=== PATIENT | female | born 2000 | race Caucasian/White ===

== ENCOUNTER 2022-10-31 20:59 | Outpatient (REF) | payer SELFPAY ==
[2022-11-04 12:09] LABS: Age Gdln ACOG Testing Note (.); IGP, rfx Aptima HPV ASCU Note (.)
== END 2022-10-31 21:00 | disposition home or self-care (01) ==
LOC: LAB 20:59
PROVIDERS: Visit Provider Obstetrics & Gynecology
DX: Z01.419 Encounter for gynecological examination (general) (routine) without abnormal findings (principal); Z11.51 Encounter for screening for human papillomavirus (HPV); Z12.72 Encounter for screening for malignant neoplasm of vagina
CPT/HCPCS: G0145

== ENCOUNTER 2023-01-06 09:54 | Outpatient (OUT) | payer MEDICAID, SELFPAY ==
--- NOTE | 2023-01-06 09:58 | US_ITS ---
[address] [address] Patient Name: ANTOINETTE CHAN MRN: [id number] date: 2000 Sex: F Assigned Patient Location: US Current Patient Location: US Accession/Order Number: [id number] Exam Date: 01/06/2023 10:00 Report Date: 01/06/2023 16:29 At the request of: MURIEL GARCIA Procedure: US OB cervical length EXAMINATION: US OB anatomy, US OB cervical length HISTORY: Second Trimester Z34.92 COMPARISON: Ultrasound OB transvaginal 08/11/2022 TECHNIQUE: Transabdominal sonographic examination was performed for obstetrical and evaluation. FINDINGS: Number: 1 Heart Rate: 153.4 bpm H.B. /min Amniotic Fluid Volume: Subjectively normal Placental Location: POSTERIOR with lower margin 7.9 cm from os. Cervix Length: 5 cm , closed ANATOMY: Normal Structures -cerebellum, choroid plexus, cisterna magna, lateral cerebral ventricles, orbits, midline falx, hard palate, four-chamber heart, RVOT, LVOT, stomach, kidneys, bladder, umbilical cord insertion into abdomen, three-vessel cord, cervical spine, thoracic spine, lumbar spine, sacral spine, right upper extremity, left upper extremity, right lower extremity, left lower extremity. SUBOPTIMALLY SEEN: Lower leg/foot due to position ABNORMALITIES: None BIOMETRY: BPD: 8.1 cm 32 weeks 5 days HC: 30.5 cm 34 weeks 0 days AC: 28.7 cm 32 weeks 5 days FL: 5.6 cm 29 weeks 4 days EFW:1862.2 grams; FL/AC: 19.5 FL/BPD: 68.9 HC/AC: 1.1 GESTATIONAL AGE: Age by EDC: 32 weeks 1 days FERNANDO by EDC: 03/02/2023 Age by current US: 32 weeks 2 days FERNANDO by current US: [id number] US/US OB cervical length IMPRESSION: 1. Single live intrauterine with gross detailed above. 2. Suboptimal visualization of the lower leg/foot due to position. Electronically authenticated by: PENELOPE DAVIS Date: 01/06/2023 16:29
--- NOTE | 2023-01-06 09:58 | US_ITS ---
[address] [address] Patient Name: ANTOINETTE CHAN MRN: [id number] date: 2000 Sex: F Assigned Patient Location: US Current Patient Location: US Accession/Order Number: [id number] Exam Date: 01/06/2023 10:00 Report Date: 01/06/2023 16:29 At the request of: MURIEL GARCIA Procedure: US OB anatomy EXAMINATION: US OB anatomy, US OB cervical length HISTORY: Second Trimester Z34.92 COMPARISON: Ultrasound OB transvaginal 08/11/2022 TECHNIQUE: Transabdominal sonographic examination was performed for obstetrical and evaluation. FINDINGS: Number: 1 Heart Rate: 153.4 bpm H.B. /min Amniotic Fluid Volume: Subjectively normal Placental Location: POSTERIOR with lower margin 7.9 cm from os. Cervix Length: 5 cm , closed ANATOMY: Normal Structures -cerebellum, choroid plexus, cisterna magna, lateral cerebral ventricles, orbits, midline falx, hard palate, four-chamber heart, RVOT, LVOT, stomach, kidneys, bladder, umbilical cord insertion into abdomen, three-vessel cord, cervical spine, thoracic spine, lumbar spine, sacral spine, right upper extremity, left upper extremity, right lower extremity, left lower extremity. SUBOPTIMALLY SEEN: Lower leg/foot due to position ABNORMALITIES: None BIOMETRY: BPD: 8.1 cm 32 weeks 5 days HC: 30.5 cm 34 weeks 0 days AC: 28.7 cm 32 weeks 5 days FL: 5.6 cm 29 weeks 4 days EFW:1862.2 grams; FL/AC: 19.5 FL/BPD: 68.9 HC/AC: 1.1 GESTATIONAL AGE: Age by EDC: 32 weeks 1 days FERNANDO by EDC: 03/02/2023 Age by current US: 32 weeks 2 days FERNANDO by current US: [id number] US/US OB anatomy IMPRESSION: 1. Single live intrauterine with gross detailed above. 2. Suboptimal visualization of the lower leg/foot due to position. Electronically authenticated by: PENELOPE DAVIS Date: 01/06/2023 16:29
== END 2023-01-06 09:55 | disposition home or self-care (01) ==
LOC: US 09:54
PROVIDERS: Visit Provider Obstetrics & Gynecology
DX: Z34.92 Encounter for supervision of normal pregnancy, unspecified, second trimester (principal); Z3A.32 32 weeks gestation of pregnancy
CPT/HCPCS: 76805; 76817

== ENCOUNTER 2023-01-31 20:16 | Outpatient (REF) | payer MEDICAID, SELFPAY | END 2023-01-31 20:17 | disposition home or self-care (01) | LOC: LAB 20:16 | PROVIDERS: Visit Provider Obstetrics & Gynecology | DX: Z34.93 Encounter for supervision of normal pregnancy, unspecified, third trimester (principal); Z3A.00 Weeks of gestation of pregnancy not specified | CPT/HCPCS: 87081 ==

== ENCOUNTER 2023-02-07 14:33 | Outpatient (OUT) | payer SELFPAY ==
--- NOTE | 2023-02-07 14:35 | US_ITS ---
[address] [address] Patient Name: ANTOINETTE CHAN MRN: [id number] date: 2000 Sex: F Assigned Patient Location: Current Patient Location: [facility] Accession/Order Number: [id number] Exam Date: 02/07/2023 14:36 Report Date: 02/07/2023 20:57 At the request of: MURIEL GARCIA Procedure: US OB incomplete anatomy EXAM: US OB incomplete anatomy HISTORY: SUBVISUALIZED LOWER EXTREMITIES COMPARISON: 01/06/2023 TECHNIQUE: Transabdominal FINDINGS: position: Cephalic presentation, longitudinal lie Heart rate: 164 beats minute. Normal anatomy: Lower extremities are grossly normal within the limitations of advanced gestational age Clinical age: 33 weeks 5 days Clinical FERNANDO: 03/02/2023 US/US OB incomplete anatomy IMPRESSION: Grossly normal appearance of the lower extremities Electronically authenticated by: ASHLEY ACTES Date: 02/07/2023 20:57
== END 2023-02-07 14:34 | disposition home or self-care (01) ==
LOC: US 14:33
PROVIDERS: Visit Provider Obstetrics & Gynecology
DX: Z36.2 Encounter for other antenatal screening follow-up (principal); Z3A.33 33 weeks gestation of pregnancy
CPT/HCPCS: 76815

== ENCOUNTER 2023-02-07 20:35 | Inpatient (IN) | payer MEDICAID, SELFPAY ==
[2023-02-07] VITALS (10 sets, daily range): BP systolic 101–161; BP diastolic 58–110; PULSE 68–103
[2023-02-07] MEDS: AMPICILLIN SODIUM 2,000 MG in 0.9 % SODIUM CHLORIDE 100 ML 200 MG IV (21:03)
[2023-02-07] MEDS: 0.9 % SODIUM CHLORIDE 1,000 ML 1000 ML IV (21:03)
[2023-02-07 21:15] LABS: Amphetamine Screen Urine NEGATIVE (NEGATIVE); Barbiturates Screen Urine NEGATIVE (NEGATIVE); Benzodiazepines Screen Urine NEGATIVE (NEGATIVE); Buprenorphine Screen Urine NEGATIVE (NEGATIVE); Cannabinoid Screen Urine POSITIVE (NEGATIVE); Cocaine Screen Urine NEGATIVE (NEGATIVE); Methadone Screen Urine NEGATIVE (NEGATIVE); Methamphetamines Screen Urine NEGATIVE (NEGATIVE); Opiate Screen Urine NEGATIVE (NEGATIVE); Oxycodone Screen Urine NEGATIVE (NEGATIVE); Phencyclidine Screen Urine NEGATIVE (NEGATIVE); Tricyclic Antidepressant Urine NEGATIVE (NEGATIVE)
[2023-02-07 21:31] LABS: Hematocrit 33.6 % (36.0-48.0); Hemoglobin 11.7 g/dL (12.0-16.0); Mean Corpuscular HGB Conc 34.8 g/dL (29.9-35.2); Mean Corpuscular Hemoglobin 30.1 pg (26.7-34.0); Mean Corpuscular Volume 86.4 fL (81.0-99.0); Mean Platelet Volume 12.7 fL (9.5-13.5); Platelet Count 141 10^3/uL (150-450); Red Blood Count 3.89 10^6/uL (4.20-5.40); Red Cell Distribution Width 12.8 % (11.0-15.0); White Blood Count 10.3 10^3/uL (4.0-11.0)
[2023-02-07] MEDS: FENTANYL CITRATE/PF 100 MCG/2 ML VIAL EPIDURAL (21:55)
[2023-02-07] MEDS: ROPIVACAINE HCL/PF 400 MG/200 ML PREMIX 6 MG EPIDURAL (22:02)
--- NOTE | 2023-02-07 22:57 | PM.OBPRCVD ---
Procedure Intrapartal events: None Induction method: none Delivery augmentation: rupture of membranes Delivery monitor: external FHT and external uterine Route of delivery: Episiotomy Description: none Laceration description: periurethral - 1st degree Delivery repair: Vicryl Estimated blood loss (mL): 150 Anesthesia type: Epidural Disposition: floor Delivery date: 02/07/23 Gender: male presentation: vertex Placental delivery description: Spontaneous cord description: 3 Vessels
[2023-02-08 00:13] VITALS: BP 105/74; PULSE 64
[2023-02-08 00:16] VITALS: BP 104/65; PULSE 69
[2023-02-08 00:31] VITALS: BP 109/68; PULSE 82
[2023-02-08 00:47] VITALS: BP 110/60; PULSE 66
[2023-02-08] MEDS: BENZOCAINE/MENTHOL 85 GRAM SPRAY BOTTLE 1 APPLIC TOPICAL (01:00)
[2023-02-08] MEDS: GLYCERIN/WITCH HAZEL PADS 1 PAD TOPICAL (01:00)
[2023-02-08] MEDS: IBUPROFEN 600 MG TABLET PO ×3 (03:13→18:22)
[2023-02-08 05:55] LABS: Basophils Percent Auto 0.1 % (0.2-2.0); Hematocrit 32.4 % (36.0-48.0); Hemoglobin 10.8 g/dL (12.0-16.0); Immature Granulocytes Abs Auto 0.06 10^3/uL (0.00-0.03); Immature Granulocytes Pct Auto 0.4 % (0.0-0.5); Lymphocytes Absolute Auto 1.2 10^3/uL (1.2-3.8); Lymphocytes Percent Auto 8.4 % (20.5-60.0); Mean Corpuscular HGB Conc 33.3 g/dL (29.9-35.2); Mean Corpuscular Hemoglobin 29.4 pg (26.7-34.0); Mean Corpuscular Volume 88.3 fL (81.0-99.0); Mean Platelet Volume 12.5 fL (9.5-13.5); Monocytes Absolute Auto 1.1 10^3/uL (0.3-0.8); Monocytes Percent Auto 7.4 % (1.7-12.0); Neutrophils Absolute Auto 12.2 10^3/uL (1.4-6.5); Neutrophils Percent Auto 83.7 % (43.0-75.0); Platelet Count 116 10^3/uL (150-450); Red Blood Count 3.67 10^6/uL (4.20-5.40); Red Cell Distribution Width 12.7 % (11.0-15.0); White Blood Count 14.5 10^3/uL (4.0-11.0)
[2023-02-08 07:42] VITALS: BP 111/76; PULSE 77; RESP 16; TEMP 36.2
--- NOTE | 2023-02-08 07:42 | W.PC.ACHO ---
Registration Status: ADM IN Primary Language: Preferred Language: Arabic Active Medications Generic Name Dose Route Start Last Admin Trade Name Dawood PRN Reason Stop Dose Admin Acetaminophen 650 mg 02/07/23 22:59 Acetaminophen 325 Mg Tablet PO Q6H PRN Mild Pain Al Hydroxide/Mg Hydroxide 2,400 mg 02/07/23 22:59 Magnesium Hydroxide 2,400 Mg/10 Ml Oral.Susp PO Q6H PRN Dyspepsia Benzocaine/Menthol 1 applic 02/07/23 22:59 02/08/23 01:00 Benzocaine/Menthol 85 Gram [place] Bottle TOPICAL 1 applic Q2H PRN Administration Pain Carboprost Tromethamine 250 mcg 02/07/23 20:50 Carboprost Tromethamine 250 Mcg/Ml 1 Ml Vial IM 02/09/23 20:50 Q15M PRN Bleeding Diphenhydramine HCl 25 mg 02/07/23 20:50 Diphenhydramine Hcl 50 Mg/Ml (1ml) Vial IV 02/08/23 20:53 Q6H PRN Itching Diphtheria/Pertussis/Tetanus Vacc 0.5 ml 02/09/23 09:00 Adacel Diph,Pertuss(Acell),Tet Vac/Pf 0.5 Ml Adult Syringe IM 02/09/23 09:01 .ONCE ONE Docusate Sodium 100 mg 02/08/23 09:00 Docusate Sodium 100 Mg Capsule PO BID LISA Ephedrine Sulfate 5 mg 02/07/23 20:50 Ephedrine Sulfate 50 Mg/Ml Vial IV 02/08/23 20:53 Q5M PRN Blood Pressure - Low Fentanyl Citrate 100 mcg 02/07/23 20:50 02/07/23 21:55 Fentanyl Citrate/Pf 100 Mcg/2 Ml Vial EPIDURAL 100 mcg ONCE PRN Administration epidural Fentanyl Citrate 100 mcg 02/07/23 20:50 Fentanyl Citrate/Pf 100 Mcg/2 Ml Vial EPIDURAL ONCE PRN epidural Sodium Chloride 1,000 mls @ 125 mls/hr 02/07/23 21:00 Sodium Chloride 0.9% 1,000 Ml IV .Q8H LISA Ampicillin 1,000 mg/ Sodium 50 mls @ 100 mls/hr 02/08/23 01:00 Chloride IV Q4H LISA Ropivacaine/Sodium Chloride 400 mg in 200 mls @ 6 mls/hr 02/07/23 21:00 02/07/23 22:02 Naropin 0.2% 400 Mg/200 Ml Bag EPIDURAL 6 mls/hr Q24H LISA Administration Ibuprofen 600 mg 02/07/23 22:59 02/08/23 03:13 Ibuprofen 600 Mg Tablet PO 600 mg Q6H PRN Administration Moderate Pain Lidocaine 5 ml 02/07/23 20:50 Lidocaine Hcl 2% Pf 100 Mg/5 Ml Vial INJ 02/08/23 20:53 Q1H PRN Pain Measles/Mumps/Rubella Vaccine Live 0.5 ml 02/09/23 09:00 Measles,Mumps,Rubella Vacc/Pf 0.5 Ml Vial SQ 02/09/23 09:01 .ONCE ONE Methylergonovine Maleate 0.2 mg 02/07/23 20:50 Methylergonovine Maleate 0.2 Mg/Ml Ampule IM 02/09/23 20:50 ONCE PRN Uterine Contractility/Contract Methylergonovine Maleate 0.2 mg 02/07/23 20:50 Methylergonovine Maleate 0.2 Mg Tablet PO 02/09/23 20:50 Q4H PRN Uterine Contractility/Contract Misoprostol 600 mcg 02/07/23 20:50 Misoprostol 100 Mcg Tablet PO 02/09/23 20:50 ONCE PRN Uterine Bleeding Misoprostol 800 mcg 02/07/23 20:50 Misoprostol 100 Mcg Tablet SL 02/09/23 20:50 ONCE PRN Uterine Bleeding Misoprostol 1,000 mcg 02/07/23 20:50 Misoprostol 100 Mcg Tablet [place] 02/09/23 20:50 ONCE PRN Uterine Bleeding Naloxone HCl 0.4 mg 02/07/23 20:50 Naloxone Hcl 0.4 Mg/Ml Vial IV 02/08/23 20:53 ONCE PRN Opiate Reversal Ondansetron HCl 4 mg 02/07/23 20:50 Ondansetron Pf 4 Mg/2 Ml Vial IV Q6H PRN Nausea And Vomiting Ondansetron HCl 4 mg 02/07/23 20:50 Ondansetron 4 Mg Rapdis Tablet SL Q6H PRN Nausea And Vomiting Oxytocin 10 unit 02/07/23 20:50 Oxytocin 10 Unit/Ml Vial IM 02/09/23 20:50 ONCE PRN Bleeding Senna 17.2 mg 02/07/23 20:00 Sennosides 8.6 Mg Tablet PO QHS PRN Constipation Simethicone 80 mg 02/07/23 22:59 Simethicone 80 Mg Tab.Chew PO QID PRN Abdominal Distention Temazepam 15 mg 02/07/23 22:59 Temazepam 15 Mg Capsule PO QHS PRN Sleep Witch [place]ora/Glycerin 1 pad 02/07/23 22:59 02/08/23 01:00 Glycerin/Witch [place] Pads TOPICAL 1 pad Q2H PRN Administration Pain Diet Category Date Time Status Regular Consistency Diet Diet 02/07/23 22:59 Active IV Insertion/Site Date of IV Line Insertion [ 02/07/23 Short PIV (<1.75 in) 18g left Hand] IV Insertion Time [Short PIV ( 20:58 <1.75 in) 18g left Hand] Neurology Patient orientation (short person,place,time,situation list) Respiratory Oxygen Delivery Method Room Air Cardiology Heart Sounds Strong,Regular Bowels Date of Last Bowel Movement 02/08/23 Date of Last Bowel Movement 02/08/23 Renal Bladder Pattern Continent
--- NOTE | 2023-02-08 08:11 | PM.OBPN ---
OB - PN: Subj Subjective Patient comments: no complaints and pain well controlled status: doing well Exam Constitutional Vital Signs, click to edit/add: Last Vital Signs Pulse 77 02/08/23 07:42 BP 111/76 02/08/23 07:42 O2 Del Method Room Air 02/08/23 00:15 Documenting provider has reviewed patient's vital signs: yes Common normals: no apparent distress Respiratory Common normals: normal respiratory effort and clear to auscultation bilaterally Cardio Common normals: regular rate and regular rhythm GI Common normals: Normal to inspection, nondistended, normoactive bowel sounds present Extremity Common normals: no clubbing, cyanosis or edema and no calf tenderness Results Labs Labs: Short CBC 02/07/23 02/08/23 Range/Units 21:00 05:41 WBC 10.3 14.5 H (4.0-11.0) 10^3/uL Hgb 11.7 L 10.8 L (12.0-16.0) g/dL Hct 33.6 L 32.4 L (36.0-48.0) % Plt Count 141 L 116 L (150-450) 10^3/uL OB - PN: A/P Plan - Vaginal Delivery day: 1 Plan: routine care Time Spent with Patient Time: Total time spent is greater than 50% in coordination of care (as documented) at patient's floor/unit and/or counseling patient: Total time spent with greater than 50% in coordination of care (as documented) at patient's floor/unit and/or counseling patient: less than 15 minutes
[2023-02-08] MEDS: DOCUSATE SODIUM 100 MG CAPSULE PO ×2 (08:57→20:26)
--- NOTE | 2023-02-08 12:22 | CM.NOTE ---
Talked with pt about self-pay, pt states her paperwork was turned in late for Medicaid. Talked with Sophia in billing, pt is not active with Medicaid at this time and Tamra will come up and talk with pt regarding Hcap form. Pt has resubmitted paperwork for Medicaid but everything is still pending.
--- NOTE | 2023-02-08 14:16 | PC.NURSE ---
LC into room, Jessica holding baby. States its going pretty good states baby is sleepy and gaggy at intervals. Aware that 36 weeks GA may present difficulties with . Discussed ways to recognize early feeding cues, keeping baby engaged with feeding and signs that baby may be tired from effort of feeding. Discussed plans for easy milk by hand expression and collection. Giving baby expressed colostrum via cup, spoon or finger/syringe to increase calories without burning calories working for food. Verbalized understanding. Given 2 handouts for LPI information for pt to review. No further questions at this time.
[2023-02-08] MEDS: ACETAMINOPHEN 325 MG TABLET 650 MG PO ×2 (14:49→20:27)
[2023-02-08 16:05] VITALS: BP 114/69; PULSE 87; RESP 16; TEMP 36.3
--- NOTE | 2023-02-08 19:36 | W.PC.ACHO ---
Registration Status: ADM IN Primary Language: Preferred Language: Nepali Active Medications Generic Name Dose Route Start Last Admin Trade Name Alfredoq PRN Reason Stop Dose Admin Acetaminophen 650 mg 02/07/23 22:59 02/08/23 14:49 Acetaminophen 325 Mg Tablet PO 650 mg Q6H PRN Administration Mild Pain Al Hydroxide/Mg Hydroxide 2,400 mg 02/07/23 22:59 Magnesium Hydroxide 2,400 Mg/10 Ml Oral.Susp PO Q6H PRN Dyspepsia Benzocaine/Menthol 1 applic 02/07/23 22:59 02/08/23 01:00 Benzocaine/Menthol 85 Gram [place] Bottle TOPICAL 1 applic Q2H PRN Administration Pain Carboprost Tromethamine 250 mcg 02/07/23 20:50 Carboprost Tromethamine 250 Mcg/Ml 1 Ml Vial IM 02/08/23 23:59 Q15M PRN Bleeding Celecoxib 20 mg 02/09/23 09:00 Citalopram Hydrobromide 20 Mg Tablet PO QD LISA Diphtheria/Pertussis/Tetanus Vacc 0.5 ml 02/09/23 09:00 Adacel Diph,Pertuss(Acell),Tet Vac/Pf 0.5 Ml Adult Syringe IM 02/09/23 09:01 .ONCE ONE Docusate Sodium 100 mg 02/08/23 09:00 02/08/23 08:57 Docusate Sodium 100 Mg Capsule PO 100 mg BID LISA Administration Sodium Chloride 1,000 mls @ 125 mls/hr 02/07/23 21:00 Sodium Chloride 0.9% 1,000 Ml IV .Q8H LISA Ibuprofen 600 mg 02/07/23 22:59 02/08/23 18:22 Ibuprofen 600 Mg Tablet PO 600 mg Q6H PRN Administration Moderate Pain Measles/Mumps/Rubella Vaccine Live 0.5 ml 02/09/23 09:00 Measles,Mumps,Rubella Vacc/Pf 0.5 Ml Vial SQ 02/09/23 09:01 .ONCE ONE Methylergonovine Maleate 0.2 mg 02/07/23 20:50 Methylergonovine Maleate 0.2 Mg/Ml Ampule IM 02/08/23 23:59 ONCE PRN Uterine Contractility/Contract Methylergonovine Maleate 0.2 mg 02/07/23 20:50 Methylergonovine Maleate 0.2 Mg Tablet PO 02/08/23 23:59 Q4H PRN Uterine Contractility/Contract Misoprostol 600 mcg 02/07/23 20:50 Misoprostol 100 Mcg Tablet PO 02/08/23 23:59 ONCE PRN Uterine Bleeding Misoprostol 800 mcg 02/07/23 20:50 Misoprostol 100 Mcg Tablet SL 02/08/23 23:59 ONCE PRN Uterine Bleeding Misoprostol 1,000 mcg 02/07/23 20:50 Misoprostol 100 Mcg Tablet CA 02/08/23 23:59 ONCE PRN Uterine Bleeding Ondansetron HCl 4 mg 02/07/23 20:50 Ondansetron Pf 4 Mg/2 Ml Vial IV Q6H PRN Nausea And Vomiting Ondansetron HCl 4 mg 02/07/23 20:50 Ondansetron 4 Mg Rapdis Tablet SL Q6H PRN Nausea And Vomiting Senna 17.2 mg 02/07/23 20:00 Sennosides 8.6 Mg Tablet PO QHS PRN Constipation Simethicone 80 mg 02/07/23 22:59 Simethicone 80 Mg Tab.Chew PO QID PRN Abdominal Distention Temazepam 15 mg 02/07/23 22:59 Temazepam 15 Mg Capsule PO QHS PRN Sleep Witch [place]/Glycerin 1 pad 02/07/23 22:59 02/08/23 01:00 Glycerin/Witch [place] Pads TOPICAL 1 pad Q2H PRN Administration Pain Diet Category Date Time Status Regular Consistency Diet Diet 02/07/23 22:59 Active Consults Category Date Time Status 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
[2023-02-09 00:15] VITALS: BP 121/78; PULSE 73; RESP 16; TEMP 36.9
[2023-02-09 00:16] VITALS: BP 121/78; PULSE 73
[2023-02-09] MEDS: IBUPROFEN 600 MG TABLET PO ×2 (04:59→12:50)
[2023-02-09 08:35] VITALS: BP 121/72; PULSE 83; RESP 16; TEMP 36.2
--- NOTE | 2023-02-09 08:38 | PM.OBPN ---
OB - PN: Subj Subjective Patient comments: no complaints and pain well controlled [place] status: doing well Exam Constitutional Vital Signs, click to edit/add: Last Vital Signs Temp 98.4 F 02/09/23 00:15 Pulse 83 02/09/23 08:35 Resp 16 02/09/23 00:15 BP 121/72 02/09/23 08:35 O2 Del Method Room Air 02/09/23 00:15 Documenting provider has reviewed patient's vital signs: yes Common normals: no apparent distress Respiratory Common normals: normal respiratory effort and clear to auscultation bilaterally Cardio Common normals: regular rate and regular rhythm GI Common normals: Normal to inspection, nondistended, normoactive bowel sounds present Extremity Common normals: no calf tenderness OB - PN: A/P Plan - Vaginal Delivery day: 2 Plan: routine care, discharge home and follow up 6 weeks Time Spent with Patient Time: Total time spent is greater than 50% in coordination of care (as documented) at patient's floor/unit and/or counseling patient: Total time spent with greater than 50% in coordination of care (as documented) at patient's floor/unit and/or counseling patient: less than 15 minutes
[2023-02-09] MEDS: DOCUSATE SODIUM 100 MG CAPSULE PO (08:39)
[2023-02-09] MEDS: CITALOPRAM HYDROBROMIDE 20 MG TABLET PO (08:39)
--- NOTE | 2023-02-09 12:17 | PC.NURSE ---
Pt states feeding is going well, no concerns with latching or ability to transfer milk. Mom has baby at breast now and is noted to be swaddled with both arms crossed over chest. Reviewed deep latch and better positioning. Pt weaned 2 yo 10 weeks ago. States feels full and leaking with latch.
--- NOTE | 2023-02-09 13:01 | W.PC.ACHO ---
Registration Status: ADM IN Primary Language: Preferred Language: Yoruba Report given. Care relinguished Active Medications Generic Name Dose Route Start Last Admin Trade Name Freq PRN Reason Stop Dose Admin Acetaminophen 650 mg 02/07/23 22:59 02/08/23 20:27 Acetaminophen 325 Mg Tablet PO 650 mg Q6H PRN Administration Mild Pain Al Hydroxide/Mg Hydroxide 2,400 mg 02/07/23 22:59 Magnesium Hydroxide 2,400 Mg/10 Ml Oral.Susp PO Q6H PRN Dyspepsia Benzocaine/Menthol 1 applic 02/07/23 22:59 02/08/23 01:00 Benzocaine/Menthol 85 Gram [place] Bottle TOPICAL 1 applic Q2H PRN Administration Pain Celecoxib 20 mg 02/09/23 09:00 Citalopram Hydrobromide 20 Mg Tablet PO QD LISA Diphtheria/Pertussis/Tetanus Vacc 0.5 ml 02/09/23 09:00 Adacel Diph,Pertuss(Acell),Tet Vac/Pf 0.5 Ml Adult Syringe IM 02/09/23 09:01 .ONCE ONE Docusate Sodium 100 mg 02/08/23 09:00 02/08/23 20:26 Docusate Sodium 100 Mg Capsule PO 100 mg BID LISA Administration Sodium Chloride 1,000 mls @ 125 mls/hr 02/07/23 21:00 Sodium Chloride 0.9% 1,000 Ml IV .Q8H LISA Ibuprofen 600 mg 02/07/23 22:59 02/09/23 04:59 Ibuprofen 600 Mg Tablet PO 600 mg Q6H PRN Administration Moderate Pain Measles/Mumps/Rubella Vaccine Live 0.5 ml 02/09/23 09:00 Measles,Mumps,Rubella Vacc/Pf 0.5 Ml Vial SQ 02/09/23 09:01 .ONCE ONE Ondansetron HCl 4 mg 02/07/23 20:50 Ondansetron Pf 4 Mg/2 Ml Vial IV Q6H PRN Nausea And Vomiting Ondansetron HCl 4 mg 02/07/23 20:50 Ondansetron 4 Mg Rapdis Tablet SL Q6H PRN Nausea And Vomiting Senna 17.2 mg 02/07/23 20:00 Sennosides 8.6 Mg Tablet PO QHS PRN Constipation Simethicone 80 mg 02/07/23 22:59 Simethicone 80 Mg Tab.Chew PO QID PRN Abdominal Distention Temazepam 15 mg 02/07/23 22:59 Temazepam 15 Mg Capsule PO QHS PRN Sleep Witch [place]/Glycerin 1 pad 02/07/23 22:59 02/08/23 01:00 Glycerin/Witch [place] Pads TOPICAL 1 pad Q2H PRN Administration Pain Respiratory Oxygen Delivery Method Room Air Oxygen Delivery Method Room Air Oxygen Delivery Method Room Air Renal Bladder Pattern Continent
--- NOTE | 2023-02-09 13:01 | W.PC.ACHO ---
Registration Status: ADM IN Primary Language: Preferred Language: Estonian Report received from Yasmin BENNETT at 1130. Active Medications Generic Name Dose Route Start Last Admin Trade Name Freq PRN Reason Stop Dose Admin Acetaminophen 650 mg 02/07/23 22:59 02/08/23 20:27 Acetaminophen 325 Mg Tablet PO 650 mg Q6H PRN Administration Mild Pain Al Hydroxide/Mg Hydroxide 2,400 mg 02/07/23 22:59 Magnesium Hydroxide 2,400 Mg/10 Ml Oral.Susp PO Q6H PRN Dyspepsia Benzocaine/Menthol 1 applic 02/07/23 22:59 02/08/23 01:00 Benzocaine/Menthol 85 Gram [place] Bottle TOPICAL 1 applic Q2H PRN Administration Pain Celecoxib 20 mg 02/09/23 09:00 02/09/23 08:39 Citalopram Hydrobromide 20 Mg Tablet PO 20 mg QD LISA Administration Docusate Sodium 100 mg 02/08/23 09:00 02/09/23 08:39 Docusate Sodium 100 Mg Capsule PO 100 mg BID LISA Administration Sodium Chloride 1,000 mls @ 125 mls/hr 02/07/23 21:00 Sodium Chloride 0.9% 1,000 Ml IV .Q8H LISA Ibuprofen 600 mg 02/07/23 22:59 02/09/23 12:50 Ibuprofen 600 Mg Tablet PO 600 mg Q6H PRN Administration Moderate Pain Ondansetron HCl 4 mg 02/07/23 20:50 Ondansetron Pf 4 Mg/2 Ml Vial IV Q6H PRN Nausea And Vomiting Ondansetron HCl 4 mg 02/07/23 20:50 Ondansetron 4 Mg Rapdis Tablet SL Q6H PRN Nausea And Vomiting Senna 17.2 mg 02/07/23 20:00 Sennosides 8.6 Mg Tablet PO QHS PRN Constipation Simethicone 80 mg 02/07/23 22:59 Simethicone 80 Mg Tab.Chew PO QID PRN Abdominal Distention Temazepam 15 mg 02/07/23 22:59 Temazepam 15 Mg Capsule PO QHS PRN Sleep Witch [place]/Glycerin 1 pad 02/07/23 22:59 02/08/23 01:00 Glycerin/Witch [place] Pads TOPICAL 1 pad Q2H PRN Administration Pain Respiratory Oxygen Delivery Method Room Air Oxygen Delivery Method Room Air Oxygen Delivery Method Room Air Oxygen Delivery Method Room Air Renal Bladder Pattern Continent
[2023-02-09 15:45] VITALS: BP 106/71; PULSE 81
[2023-02-11 18:08] LABS: Cannabinoid Positive (.); Carboxy THC Conf, MS, UR >750 ng/mL (Cutoff=10)
--- NOTE | 2023-02-20 15:14 | CM.NOTE ---
Cord results negative and were called to CPS.
== END 2023-02-09 18:00 | disposition home or self-care (01) | DRG 807 ==
PROVIDERS: Admitting Provider Obstetrics & Gynecology; Visit Provider Obstetrics & Gynecology
DX: O60.14X0 Preterm labor third trimester with preterm delivery third trimester, not applicable or unspecified (principal); Z37.0 Single live birth; O71.82 Other specified trauma to perineum and vulva; O99.52 Diseases of the respiratory system complicating childbirth; J45.909 Unspecified asthma, uncomplicated; Z3A.36 36 weeks gestation of pregnancy
CPT/HCPCS: 36415; 59050; 59410; 76815; 80307; 80349; 85025; 85027; 86850; 86900; 86901; 96374; 96375

== ENCOUNTER 2023-02-13 08:16 | Outpatient (OUT) | payer OTHER, SELFPAY ==
[2023-02-13 18:58] VITALS: BP 124/61; PULSE 87; RESP 16; TEMP 36.4; O2SAT 97
== END 2023-02-13 16:00 | disposition home or self-care (01) ==
PROVIDERS: Visit Provider Obstetrics & Gynecology
DX: Z39.2 Encounter for routine postpartum follow-up (principal)

== ENCOUNTER 2023-07-18 11:49 | Outpatient (OUT) | payer MEDICAID, SELFPAY ==
[2023-07-18 14:06] LABS: HCG Qualitative NEGATIVE (NEGATIVE)
== END 2023-07-18 11:50 | disposition home or self-care (01) ==
LOC: LAB 11:51
PROVIDERS: PCP Family Medicine; Visit Provider Family Medicine
DX: N93.8 Other specified abnormal uterine and vaginal bleeding (principal)
CPT/HCPCS: 36415; 84703

== ENCOUNTER 2024-07-12 08:55 | Emergency (ER) | payer SELFPAY ==
[2024-07-12 08:59] VITALS: BP 113/86; PULSE 102; TEMP 36.8; O2SAT 94; BMI 26.5
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
[2024-07-12 09:33] LABS: HCG Qualitative Urine* NEGATIVE (NEGATIVE); Internal Control Within Normal Limits
[2024-07-12 09:35] LABS: Bilirubin Urine MODERATE (NEGATIVE); Blood Urine NEGATIVE (NEGATIVE); Clarity Urine SL CLOUDY (CLEAR); Color Urine YELLOW (YELLOW); Glucose Urine UA NEGATIVE (NEGATIVE); Ketones Urine 15 mg/dL (NEGATIVE); Leukocyte Esterase Urine NEGATIVE (NEGATIVE); Nitrite Urine NEGATIVE (NEGATIVE); Protein Urine TRACE mg/dL (NEG/TRACE); Specific Gravity Urine >=1.030 (1.005-1.025); Urobilinogen Urine 0.2 EU/dL (0.2-1.0)
[2024-07-12 09:40] LABS: Basophils Percent Auto 0.2 % (0.2-2.0); Eosinophils Percent Auto 0.1 % (0.9-7.0); Hematocrit 42.4 % (36.0-48.0); Hemoglobin 14.5 g/dL (12.0-16.0); Immature Granulocytes Abs Auto 0.02 10^3/uL (0.00-0.03); Immature Granulocytes Pct Auto 0.2 % (0.0-0.5); Lymphocytes Absolute Auto 1.4 10^3/uL (1.2-3.8); Lymphocytes Percent Auto 13.5 % (20.5-60.0); Mean Corpuscular HGB Conc 34.2 g/dL (29.9-35.2); Mean Corpuscular Hemoglobin 29.4 pg (26.7-34.0); Mean Corpuscular Volume 85.8 fL (81.0-99.0); Mean Platelet Volume 11.8 fL (9.5-13.5); Monocytes Absolute Auto 0.6 10^3/uL (0.3-0.8); Monocytes Percent Auto 6.2 % (1.7-12.0); Neutrophils Percent Auto 79.8 % (43.0-75.0); Platelet Count 212 10^3/uL (150-450); Red Blood Count 4.94 10^6/uL (4.20-5.40); Red Cell Distribution Width 12.7 % (11.0-15.0); White Blood Count 10.1 10^3/uL (4.0-11.0)
[2024-07-12 09:41] LABS: Bacteria Urine MODERATE #/HPF (NONE SEEN); RBC Urine 0-2 #/HPF (0-2)
[2024-07-12 09:42] LABS: Cast Seen? NONE SEEN #/LPF (NONE SEEN); Crystals Seen? None Seen #/HPF (None Seen); Mucus Urine SMALL (NONE SEEN); Squamous Epithelial Cell Urine MANY #/LPF (NONE/RARE); Urine Culture Indicated YES-FRMC
[2024-07-12] MEDS: 0.9 % SODIUM CHLORIDE 1,000 ML 1000 ML IV (10:00)
[2024-07-12] MEDS: FAMOTIDINE/PF 20 MG/2 ML VIAL IV (10:28)
[2024-07-12] MEDS: PROCHLORPERAZINE 10 MG/2 ML VIAL IV (10:28)
[2024-07-12] MEDS: lidocaine HCL 15 ML, MAG HYDROX/ALUMINUM HYD/SIMETH 30 ML, HYOSCYAMINE SULFATE 0.25 MG PO (10:28)
[2024-07-12 10:46] LABS: Alanine Aminotransferase 20 U/L (14-59); Albumin Globulin Ratio 1.4; Albumin Level 4.6 g/dL (3.4-5.0); Alkaline Phosphatase 71 U/L (46-116); Anion Gap 17.2; Aspartate Amino Transferase 14 U/L (15-37); BUN Creatinine Ratio 11.7; Bilirubin Total 0.7 mg/dL (0.2-1.0); Calcium 9.4 mg/dL (8.5-10.1); Carbon Dioxide 24.4 mmol/L (21.0-32.0); Chloride 105 mmol/L (98-107); Creatine Kinase 93 U/L (26-192); Estimated GFR (African America >60 (>=60 mL/min/1.73m^2); Estimated GFR (Non-African Ame >60 (>=60 mL/min/1.73m^2); Globulin 3.3 g/dL; Glucose 87 mg/dL (74-106); Potassium 3.6 mmol/L (3.5-5.1); Sodium 143 mmol/L (136-145); Total Protein 7.9 g/dL (6.4-8.2)
[2024-07-12 11:28] VITALS: BP 114/74; PULSE 70; O2SAT 98
[2024-07-12 12:16] VITALS: BP 123/74; PULSE 59; O2SAT 97
== END 2024-07-12 12:26 | disposition home or self-care (01) ==
PROVIDERS: Emergency Provider Emergency Medicine; PCP Family Medicine
DX: K29.70 Gastritis, unspecified, without bleeding (principal); R19.7 Diarrhea, unspecified; F41.8 Other specified anxiety disorders; F50.20 Bulimia nervosa, unspecified; Z68.26 Body mass index [BMI] 26.0-26.9, adult
CPT/HCPCS: 36415; 80053; 81001; 82550; 83690; 83735; 84703; 85025; 87086; 96361; 96374; 96375; 99284; J0780; J3490

== ENCOUNTER 2024-07-13 05:33 | Emergency (ER) | payer SELFPAY ==
[2024-07-13 05:38] VITALS: BP 122/77; PULSE 90; TEMP 36.6; O2SAT 97; BMI 26.4
--- NOTE | 2024-07-13 05:53 | ED.GENADUL1 ---
HPI HPI - General Adult General Chief complaint: Nausea/Vomiting/Diarrhea Stated complaint: VOMITTING Time Seen by Provider: 07/13/24 05:40 Source: patient Mode of arrival: walk-in Limitations: no limitations History of Present Illness HPI narrative: 23-year-old female presents to the emergency department for abdominal pain, vomiting and a small amount of diarrhea. She states she has been having these issues for about 4 days and has had no hematemesis or blood in her stool. She had been here yesterday and had blood work performed. At that time she discussed bulimia symptoms with the emergency department physician. He had spoken to the patient's PCP who was already aware of this problem and was on an antidepressant. Yesterday she was referred to [facility]. No fever or trauma. The patient had been making herself vomit so that she did not gain weight for about 3 months but stopped that about 2 weeks ago. The symptoms started 4 days ago. Related Data Home Medications ?Medication ?Instructions ?Recorded ?Confirmed citalopram 20 mg tablet 40 mg PO DAILY 02/08/23 07/12/24 promethazine 12.5 mg tablet 12.5 mg PO Q12H PRN nausea and 02/08/23 07/12/24 vomiting cyproheptadine 4 mg tablet 2 mg PO Q12H 07/12/24 07/12/24 Previous Rx's ?Medication ?Instructions ?Recorded ondansetron 4 mg disintegrating 4 mg PO Q4H PRN nausea and 07/12/24 tablet vomiting 3 days #6 tabs prochlorperazine maleate 10 mg 10 mg PO Q12H PRN nausea and 07/12/24 tablet (Compazine) vomiting, headache 7 days #7 tabs Allergies Allergy/AdvReac Type Severity Reaction Status Date / Time No Known Drug Allergies Allergy Verified 07/13/24 05:38 Opioid HPI Opioid Management Most Recent Opioid Data: Last Pain Scale 8 07/12/24 10:01 07/12/24 Urine Cannabinoids Positive (.) A 02/07/23 21:18 02/07/23 Ur Phencyclidine Scrn Negative (NEGATIVE) 02/07/23 20:50 02/07/23 Review of Systems ROS Narrative A ten point review of systems is negative except as noted above. [facility] Medical History (Updated 04/05/25 @ 06:57 by Mario Solorio MD) Suicide attempt ?T14.91XA - Suicide attempt, initial encounter (ICD-10) Asthma ?J45.909 - Unspecified asthma, uncomplicated (ICD-10) Social History (Updated 02/08/23 @ 04:22 by Jourdan Shahid) Non-prescribed substance use: cannabis (any form) Little interest or pleasure in doing things: not at all Feeling down, depressed, or hopeless: not at all Exam Narrative Exam Narrative: Nurses note and vital signs reviewed and patient is not hypoxic. General: The patient appears in no apparent distress. Skin: Warm, dry, no pallor noted. There is no rash noted. Head: Normocephalic, atraumatic Eye: Normal conjunctiva, no drainage Ears, Nose, Mouth, and Throat: oral mucosa is minimally dry. Nares patent. Cardiovascular: Regular Rate and Rhythm Respiratory: Patient is in no distress, no accessory muscle use, lungs are clear to auscultation, no wheezing, rales or rhonchi Back: non-tender GI: Soft and nontender nondistended Musculoskeletal: The patient has no evidence of calf tenderness, no pitting edema, symmetrical pulses noted bilaterally Neurological: A&O, normal speech Psychiatric: Cooperative Constitutional Vital Signs, click to edit/add: Last Vital Signs Temp 98 F 07/13/24 05:38 Pulse 90 07/13/24 05:38 Resp 18 07/13/24 05:38 BP 122/77 07/13/24 05:38 Pulse Ox 97 07/13/24 05:38 O2 Del Method Room Air 07/13/24 05:38 Course Vital Signs Vital signs: Vital Signs Temperature 98 F 07/13/24 05:38 Pulse Rate 90 07/13/24 05:38 Respiratory Rate 18 07/13/24 05:38 Blood Pressure 122/77 07/13/24 05:38 Pulse Oximetry 97 07/13/24 05:38 Oxygen Delivery Method Room Air 07/13/24 05:38 Temperature 98 F 07/13/24 05:38 Pulse Rate 90 07/13/24 05:38 Respiratory Rate 18 07/13/24 05:38 Blood Pressure 122/77 07/13/24 05:38 Pulse Oximetry 97 07/13/24 05:38 Oxygen Delivery Method Room Air 07/13/24 05:38 Medical Decision Making MDM Narrative Medical decision making narrative: Tests are ordered and the patient is signed out to Dr. Bowen at change of shift. CT scan is pending Lab Data Lab results reviewed: Yes I reviewed the patient's lab results Labs: Lab Results 07/13/24 Range/Units 05:45 WBC 12.7 H (4.0-11.0) 10^3/uL RBC 4.87 (4.20-5.40) 10^6/uL Hgb 14.5 (12.0-16.0) g/dL Hct 42.4 (36.0-48.0) % MCV 87.1 (81.0-99.0) fL MCH 29.8 (26.7-34.0) pg MCHC 34.2 (29.9-35.2) g/dL RDW 12.5 (11.0-15.0) % Plt Count 214 (150-450) 10^3/uL MPV 12.1 (9.5-13.5) fL Neut % (Auto) 85.5 H (43.0-75.0) % Lymph % (Auto) 9.8 L (20.5-60.0) % [place] % (Auto) 4.3 (1.7-12.0) % Eos % (Auto) 0.0 L (0.9-7.0) % Baso % (Auto) 0.2 (0.2-2.0) % Neut # (Auto) 10.9 H (1.4-6.5) 10^3/uL Lymph # (Auto) 1.2 (1.2-3.8) 10^3/uL [place] # (Auto) 0.6 (0.3-0.8) 10^3/uL Eos # (Auto) 0.0 (0.0-0.7) 10^3/uL Baso # (Auto) 0.0 (0.0-0.1) 10^3/uL Abs Immat Gran (auto) 0.02 (0.00-0.03) 10^3/uL Imm/Tot Granulo (auto) 0.2 (0.0-0.5) % Sodium 145 (136-145) mmol/L Potassium 3.6 (3.5-5.1) mmol/L Chloride 105 (98-107) mmol/L Carbon Dioxide 20.3 L (21.0-32.0) mmol/L Anion Gap 23.3 BUN 14.0 (7.0-18.0) mg/dL Creatinine 0.93 (0.55-1.02) mg/dL Est GFR ( Amer) >60 (>=60 mL/min/1.73m^2) Est GFR (Non-Af Amer) >60 (>=60 mL/min/1.73m^2) BUN/Creatinine Ratio 15.1 Glucose 89 (74-106) mg/dL Calcium 9.3 (8.5-10.1) mg/dL Total Bilirubin 1.1 H (0.2-1.0) mg/dL Direct Bilirubin 0.2 (0.0-0.2) mg/dL AST 15 (15-37) U/L ALT 19 (14-59) U/L Alkaline Phosphatase 70 (46-116) U/L Total Protein 7.7 (6.4-8.2) g/dL Albumin 4.7 (3.4-5.0) g/dL Globulin 3.0 g/dL Albumin/Globulin Ratio 1.6 Amylase 47 (25-115) U/L Lipase 22.0 (16.0-77.0) U/L Discharge Plan Discharge Chief Complaint: Nausea/Vomiting/Diarrhea Clinical Impression: Nausea & vomiting Patient Disposition: Still a Patient Prescriptions / Home Meds: No Action cyproheptadine 4 mg tablet 2 mg PO Q12H prochlorperazine maleate [Compazine] 10 mg tablet 10 mg PO Q12H PRN (Reason: nausea and vomiting, headache) 7 Days Qty: 7 0RF ondansetron 4 mg tablet,disintegrating 4 mg PO Q4H PRN (Reason: nausea and vomiting) 3 Days Qty: 6 0RF promethazine 12.5 mg tablet 12.5 mg PO Q12H PRN (Reason: nausea and vomiting) citalopram 20 mg tablet 40 mg PO DAILY Print Language: [place] Referrals: Vahid Mendiola MD [Primary Care Provider] - 1 week
--- NOTE | 2024-07-13 05:54 | PC.NURSE ---
PT INFORMED PHYSICIAN THAT SHE SELF INDUCES VOMITING F OR 3 MONTHS BECAUSE SHE FEELS LIKE SHE NEEDS TO LOSE WEIGHT. PT STATES HASN'T MADE HERSELF VOMIT IN 2 WEEKS BECAUSE SHE IS TRYING TO STOP.
[2024-07-13 05:59] LABS: Basophils Percent Auto 0.2 % (0.2-2.0); Hematocrit 42.4 % (36.0-48.0); Hemoglobin 14.5 g/dL (12.0-16.0); Immature Granulocytes Abs Auto 0.02 10^3/uL (0.00-0.03); Immature Granulocytes Pct Auto 0.2 % (0.0-0.5); Lymphocytes Absolute Auto 1.2 10^3/uL (1.2-3.8); Lymphocytes Percent Auto 9.8 % (20.5-60.0); Mean Corpuscular HGB Conc 34.2 g/dL (29.9-35.2); Mean Corpuscular Hemoglobin 29.8 pg (26.7-34.0); Mean Corpuscular Volume 87.1 fL (81.0-99.0); Mean Platelet Volume 12.1 fL (9.5-13.5); Monocytes Absolute Auto 0.6 10^3/uL (0.3-0.8); Monocytes Percent Auto 4.3 % (1.7-12.0); Neutrophils Absolute Auto 10.9 10^3/uL (1.4-6.5); Neutrophils Percent Auto 85.5 % (43.0-75.0); Platelet Count 214 10^3/uL (150-450); Red Blood Count 4.87 10^6/uL (4.20-5.40); Red Cell Distribution Width 12.5 % (11.0-15.0); White Blood Count 12.7 10^3/uL (4.0-11.0)
[2024-07-13] MEDS: ONDANSETRON PF 4 MG/2 ML VIAL IV (06:00)
[2024-07-13] MEDS: 0.9 % SODIUM CHLORIDE 1,000 ML 1000 ML IV ×2 (06:00→08:32)
[2024-07-13 06:10] LABS: Alanine Aminotransferase 19 U/L (14-59); Albumin Globulin Ratio 1.6; Albumin Level 4.7 g/dL (3.4-5.0); Alkaline Phosphatase 70 U/L (46-116); Amylase 47 U/L (25-115); Anion Gap 23.3; Aspartate Amino Transferase 15 U/L (15-37); BUN Creatinine Ratio 15.1; Bilirubin Direct 0.2 mg/dL (0.0-0.2); Bilirubin Total 1.1 mg/dL (0.2-1.0); Calcium 9.3 mg/dL (8.5-10.1); Carbon Dioxide 20.3 mmol/L (21.0-32.0); Chloride 105 mmol/L (98-107); Estimated GFR (African America >60 (>=60 mL/min/1.73m^2); Estimated GFR (Non-African Ame >60 (>=60 mL/min/1.73m^2); Glucose 89 mg/dL (74-106); Potassium 3.6 mmol/L (3.5-5.1); Sodium 145 mmol/L (136-145); Total Protein 7.7 g/dL (6.4-8.2)
--- OUTSIDE RECORDS SUMMARY | 2024-07-13 06:17 | XMS_ITS | CCD ---
Author Organization [facility] Care Team Providers Care Rcp Name Role Phone RADHA ., DR LLAMAS Attending Unavailable WEST, DR ASHLEY Wray Consulting Unavailable RADHA ., DR LLAMAS Admitting Unavailable HOY ., DR MATHEW Primary Care Unavailable RADHA ., DR LLAMAS Consulting Unavailable REQUEST, DR BALDEMAR SANTANA Consulting Unavaila ble MARKER ., DR MELGAR Admitting Unavailable MISC, DR AVILA Primary Care Unavailable MARKER ., DR MELGAR Attending Unavailable MARKER ., DR MELGAR Consulting Unavailable RADHA ., DR LLAMAS Admitting Unavailable HOY ., DR MATHEW Primary Care Unavailable RADHA ., DR LLAMAS Attending Unavailable RADHA ., DR LLAMAS Consulting Unavailable HOY ., DR MATHEW Admitting Unavailable HOY ., DR MATHEW Attending Unavailable HOY ., DR MATHEW Consulting Unavailable MISC, DR AVILA Primary Care Unavailable RADHA ., DR LLAMAS Attending Unavailable RADHA ., DR LLAMAS Admitting Unavailable WEST, DR ASHLEY Wray Consulting Unavailable MISC, DR AVILA Primary Care Unavailable RADHA ., DR LLAMAS Consulting Unavailable MISC, DR AVILA Primary Care Unavailable RADHA ., DR LLAMAS Attending Unavailable RADHA ., DR LLAMAS Consulting Unavailable RADHA ., DR LLAMAS Admitting Unavailable HOY ., DR MATHEW Primary Care Unavailable MARIAN TORO Admitting Unavailable MARIAN TORO Attending Unavailable MARIAN TORO Consulting Unavailable RADHA, MURIEL Attending Unavailable Priyanka Mendiola MD Primary Care Provider Dany Murphy DO Attending Provider [phone] Problems Active Problems Problem Classification Problem Date Documented Da te Episodic/Chronic Genitourinary symptoms and ill-defined conditions (4 sources) Frequency of micturition; Translations: [FREQUENCY OF MICTURITION] Onset: 07-28-2022 Episodic Menstrual disorders (4 sources) Irregular menstruation, unspecified; Translations: [IRREGULAR MENSTRUATION UNSPECIFIED] Onset: 08-11-2022 Chronic Nausea and vomiting (3 sources) Nausea with vomiting, unspecified; Translations: [NAUSEA WITH VOMITING UNSPECIFIED] Onset: 07-14-2022 Episodic Nutritional deficiencies (1 source) Vitamin D deficiency, unspecified; Translations: [VITAMIN D DEFICIENCY UNSPECIFIED] Onset: 08-25-2021 Chronic Other aftercare (1 source) 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; 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] Onset: 07-18-2022 Episodic Other complications of (1 source) Mild hyperemesis gravidarum; Translations: [MILD HYPEREMESIS GRAVIDARUM] Onset: 07-18-2022 Episodic Other and delivery including normal (2 sources) Encounter for supervision of other normal , first trimester; Translations: [Encounter for supervision of normal , unspecified, first trimester] Onset: 08-16-2022 Episodic Residual codes; unclassified (1 source) Weeks of gestation of not specified; Translations: [WEEKS GESTATION NOT SPEC] Onset: 07-18-2022 Episodic Screening and history of mental health and substance abuse codes (1 source) Personal history of nicotine dependence; Translations: [PERSONAL HISTORY OF NICOTINE DEPEND] Onset: 07-18-2022 Episodic Past or Other Problems Problem Classification Problem Date Documented Da te Episodic/Chronic Abdominal pain (4 sources) Pelvic and perineal pain; Translations: [PELVIC AND PERINEAL PAIN] Onset: 05-13-2022 Episodic Cardiac dysrhythmias (4 sources) Palpitations; Translations: [PALPITATIONS] Onset: 08-20-2021 Episodic Deficiency and other anemia (1 source) Anemia, unspecified; Translations: [ANEMIA UNSPECIFIED] Onset: 08-25-2021 Episodic Diabetes mellitus without complication (1 source) Other abnormal glucose; Translations: [OTHER ABNORMAL GLUCOSE] Onset: 08-25-2021 Episodic Ovarian cyst (1 source) Other ovarian cyst, left side; Translations: [OTHER OVARIAN CYST LEFT SIDE] Onset: 05-15-2022 Episodic Results Test Name Value Interpretation Reference Range Facility HEP B SURFACE ANTIGEN SCREEN on 08-12-2022 HBsAg Screen Negative Normal Negative [facility] Comment on above: Performed By: #### KATERINA STOCK #### [facility] [address] [address] [address] Mundo Puri HEPATITIS C VIRUS AB W/ REFL EX QUANTon 08-12-2022 HCV AB Non-Reactive Normal Non Reactive [facility] Comment on above: Performed By: #### I FRANCINE, VITAD #### [facility] [address] [place] [address] Dr. Mundo Puri Interpretation: Comment Normal [facility] Comment on above: Result Comment: Not infected with HCV unless early or acute infection is suspected (which may be delayed in an immunocompromised individual), or other evidence exists to indicate HCV infection. Performed By: #### I FRANCINE, VITAD #### [facility] [address] [address] [address] Mundo Puri HIV 1 AND 2 WITH REFLEXon HIV Screen 4th Generation wRfx Non-Reactive Normal Non Reactive [facility] Comment on above: Result Comment: HIV Negative HIV-1/HIV-2 antibodies and HIV-1 p24 antigen were NOT detected. There is no laboratory evidence of HIV infection. Performed By: #### I FRANCINE, VITAD #### [facility] [address] [place] [address] Dr. Mnudo Puri RPR QUANTon 08-12-2022 Rapid Plasma Reagin, Quant Non-Reactive Normal NonRea< 1:1 [facility] Comment on above: Result Comment: Plea se Note: This test does not meet current guidelines for screening and diagnosis of syphilis. This test is intended for following treatment response in patients being treated for syphilis infection. To screen for syphilis infection, a reflex cascade that includes both RPR and a treponema-specific assay should be utilized, such as Treponema pallidum (Syphilis) Screening [place] (777467) or Rapid Plasma Reagin (RPR) Test With Reflex to Quantitative RPR and Confirmatory Treponema pallidum Antibodies (305915). Performed By: #### I FRANCINE, VITAD #### [facility] [address] [place] [address] Dr. Mundo Puri RUBELLA AB IGGon 08-12-2022 Rubella Antibodies, IgG 4.27 index Normal Immune >0.99 [facility] Comment on above: Result Comment: Non- immune <0.90 Equivocal 0.90 - 0.99 Immune >0.99 Performed By: #### L BCLH #### [facility] [address] [place] [address] Dr. Mundo Puri BOX TEST SENT OUTon 08-12-19 23 SENT TO REF LAB 08/11/2022 Normal [facility] Comment on above: Performed By: #### B OX #### [facility] [address] [place] [address] Dr. Mundo Puri CBC AUTO DIFFon 08-11-2022 BASO # 0.0 103/ul Normal 0.0-0.1 [facility] Comment on above: Performed By: #### I FRANCINE VITAD #### [facility] [address] [place] [address] Dr. Mundo Puri Basophils/100 WBC (Bld) 0.2 % Normal 0.2-2.0 [facility] Comment on above: Performed By: #### Manda ESCAMILLA VITAD #### [facility] [address] [place] [address] Dr. Mundo Puri EO # 0.0 103/ul Normal 0.0-0.7 [facility] Comment on above: Performed By: #### Manda ESCAMILLA VITAD #### [facility] [address] [place] [address] Dr. Mundo Puri Eosinophils/100 WBC (Bld) 0.1 % Critically low 0.9-7. 0 [facility] Comment on above: Performed By: #### Manda ESCAMILLA VITAD #### [facility] [address] [place] [address] Dr. Mundo Puri Erythrocyte distribution width (RBC) [Ratio] 13.1 % Normal 11.0-15.0 [facility] Comment on above: Performed By: #### Manda ESCAMILLA VITAD #### [facility] [address] [place] [address] Dr. Mundo Puri Hematocrit (Bld) [Volume fraction] 39.5 % Normal 36.0-48.0 [facility] Comment on above: Performed By: #### Manda ESCAMILLA VITAD #### [facility] [address] [place] [address] Dr. Mundo Puri Hemoglobin (Bld) [Mass/Vol] 13.3 g/dL Normal 12.0-16.0 [facility] Comment on above: Performed By: #### I FRANCINE, VITAD #### [facility] [address] [place] [address] Dr. Mundo Puri IG # 0.03 10e3/ul Normal 0.00-0.03 [facility] Comment on above: Performed By: #### I FRANCINE, VITAD #### [facility] [address] [place] [address] Dr. Mundo Puri IG % 0.3 % Normal 0.0-0.5 [facility] Comment on above: Performed By: #### I FRANCINE, VITAD #### [facility] [address] [place] [address] Dr. Mundo Puri LYMPH # 1.9 103/ul Normal 1.2-3.8 [facility] Comment on above: Performed By: #### I FRANCINE, VITAD #### [facility] [address] [place] [address] Dr. Mundo Puri Lymphocytes/100 WBC (Bld) 20.4 % Critically low 20.5-6 0.0 [facility] Comment on above: Performed By: #### I FRANCINE, VITAD #### [facility] [address] [place] [address] Dr. Mundo Puri MANUAL DIFF REQ NO Normal [facility] Comment on above: Performed By: #### I FRANCINE, VITAD #### [facility] [address] [place] [address] Dr. Mundo Puri MCH (RBC) [Entitic mass] 29.8 pg Normal 26.7-34.0 [facility] Comment on above: Performed By: #### I FRANCINE, VITAD #### [facility] [address] [place] [address] Dr. Mundo Puri MCHC (RBC) [Mass/Vol] 33.7 g/dL Normal 29.9-35.2 [facility] Comment on above: Performed By: #### I FRANCINE, VITAD #### [facility] [address] [place] [address] Dr. Mundo uPri MCV (RBC) [Entitic vol] 88.4 fL Normal 81.0-99.0 [facility] Comment on above: Performed By: #### I FRANCINE, VITAD #### [facility] [address] [place] [address] Dr. Mundo Puri MONO # 0.5 103/ul Normal 0.3-0.8 [facility] Comment on above: Performed By: #### I FRANCINE, VITAD #### [facility] [address] [place] [address] Dr. Mundo Puri Monocytes/100 WBC (Bld) 5.5 % Normal 1.7-12.0 [facility] Comment on above: Performed By: #### I FRANCINE, VITAD #### [facility] [address] [place] [address] Dr. Mundo Puri NEUT # 6.7 103/ul Critically high 1.4-6.5 [facility] Comment on above: Performed By: #### I FRANCINE VITAD #### [facility] [address] [place] [address] Dr. Mundo Puri Neutrophils/100 WBC (Bld) 73.5 % Normal 43.0-75.0 [facility] Comment on above: Performed By: #### Manda ESCAMILLA, VITAD #### [facility] [address] [place] [address] Dr. Mundo Puri Platelet mean volume (Bld) [Entitic vol] 12.3 fL Normal 9.5-13.5 [facility] Comment on above: Performed By: #### I FRANCINE, VITAD #### [facility] [address] [place] [address] Dr. Mundo Puri PLT 197 103/ul Normal 150-450 [facility] Comment on above: Performed By: #### I FRANCINE, VITAD #### [facility] [address] [place] [address] Dr. Mundo Puri RBC 4.47 106/ul Normal 4.20-5.40 [facility] Comment on above: Performed By: #### I FRANCINE VITAD #### [facility] [address] [place] [address] Dr. Mundo Puri WBC 9.1 103/ul Normal 4.0-11.0 [facility] Comment on above: Performed By: #### I FRANCINE VITAD #### [facility] [address] [place] [address] Dr. Mundo Puri CULTURE URINEon 08-11-2022 CULTURE URINE Culture Observations: LIGHT GROWTH OF MIXED GENITAL GIA. NO POTENTIAL PATHOGENS SEEN. Normal [facility] Comment on above: Performed By: #### L BCLH #### [facility] [address] [place] [address] Dr. Mundo Puri GLYCOHEMOGLOBIN A1Con 2022 ADA RECOMMENDATION SEE BELOW Normal [facility] Comment on above: Result Comment: ADA RECOMMENDED LIMIT 4.0 - 6.0 ADA THERAPEUTIC TARGET < 7.0 ACTION SUGGESTED > 7.0 Performed By: #### I NSULIN #### [facility] [address] [place] [address] Dr. Mundo Puri Glucose [Mass/Vol] 103 mg/dL Normal [facility] Comment on above: Performed By: #### I NSULIN #### [facility] [address] [place] [address] Dr. Mundo Puri HbA1c (Bld) [Mass fraction] 5.2 % Normal 4.5-6.2 [facility] Comment on above: Performed By: #### I NSULIN #### [facility] [address] [place] [address] Dr. Mundo Puri TSHon 08-11-2022 TSH 1.222 uIU/mL Normal 0.358-3.740 [facility] Comment on above: Performed By: #### T SH #### [facility] [address] [place] [address] Dr. Mundo Puri TYPE AND SCREENon 08-11-2022 TYPE AND SCREEN Negative Normal [facility] Comment on above: Performed By: #### L BCLH #### [facility] [address] [place] [address] Dr. Mundo Puri US PREG TVon 08-11-2022 US PREG TV EXAMINATION: US PREG TV HISTORY: Missed period COMPARISON: 05/13/2022 FINDINGS: Lees intrauterine gestation CRL: 4.17 cm, 11 0 days Gestational sac: 4.44 cm, 10 weeks 0 days Yolk sac: 5.3 mm Heart rate: 165 bpm Cervix: Closed, 6.5 cm The uterus is normal in appearance The right ovary is not visualized. The left ovary is normal in appearance Clinical age: 14 weeks 6 days Clinical FERNANDO: 02/03/2023 Ultrasound age: 11 weeks 0 days Ultrasound FERNANDO: 03/02/2023 IMPRESSION: Viable lees intrauterine gestation measuring 11 weeks 0 days Electronically authenticated by: ASHLEY CATES Date: 2022-08-11 17:38 Normal [facility] UA (CLEAN/CATCH) FIELD SUPPORT REP/MICRO I F IND.on 07-28-2022 Bilirubin Ql (U) Negative Normal NEGATIVE [facility] Comment on above: Performed By: #### I NSULIN #### [facility] [address] [place] [address] Dr. Mundo Puri Clarity (U) CLEAR Normal CLEAR [facility] Comment on above: Performed By: #### I NSULIN #### [facility] [address] [place] [address] Dr. Mundo Puri Color (U) LT. YELLOW Normal YELLOW [facility] Comment on above: Performed By: #### I NSULIN #### [facility] [address] [place] [address] Dr. Mundo Puri Glucose Ql (U) Negative Normal NEGATIVE [facility] Comment on above: Performed By: #### I NSULIN #### [facility] [address] [place] [address] Dr. Mundo Puri Hemoglobin Ql (U) Negative Normal NEGATIVE [facility] Comment on above: Performed By: #### I NSULIN #### [facility] [address] [place] [address] Dr. Mundo Puri Ketones Ql (U) Negative Normal NEGATIVE [facility] Comment on above: Performed By: #### I NSULIN #### [facility] [address] [place] [address] Dr. Mundo Puri LEUKOCYTES Negative Normal NEGATIVE [facility] Comment on above: Performed By: #### I NSULIN #### [facility] [address] [address] [address] Mundo Puri Nitrite Ql (U) Negative Normal NEGATIVE [facility] Comment on above: Performed By: #### I NSULIN #### [facility] [address] [place] [address] Dr. Mundo Puri pH (U) 5.0 [pH] Normal 5-9 [facility] Comment on above: Performed By: #### I NSULIN #### [facility] [address] [place] [address] Dr. Mundo Puri SPEC GRAVITY 1.005 Normal 1.005-<=1.02 5 [facility] Comment on above: Performed By: #### I NSULIN #### [facility] [address] [place] [address] Dr. Mundo Puri UA PROTEIN Negative Normal NEGATIVE/ TRACE [facility] Comment on above: Performed By: #### I NSULIN #### [facility] [address] [place] [address] Dr. Mundo Puri UR MICRO IND NOT INDICATED Normal [facility] Comment on above: Performed By: #### I NSULIN #### [facility] [address] [place] [address] Dr. Mundo Puri Urobilinogen Qn (U) 0.2 {Goldy'U}/dL Normal 0.2 - 1. 0 [facility] Comment on above: Performed By: #### I NSULIN #### [facility] [address] [place] [address] Dr. Mundo Puri CBC AUTO DIFFon 07-14-2022 BASO # 0.0 103/ul Normal 0.0-0.1 [facility] Comment on above: Performed By: #### L BCLH #### [facility] [address] [place] [address] Dr. Mundo Puri Basophils/100 WBC (Bld) 0.2 % Normal 0.2-2.0 [facility] Comment on above: Performed By: #### L BCLH #### [facility] [address] [place] [address] Dr. Mundo Puri EO # 0.0 103/ul Normal 0.0-0.7 [facility] Comment on above: Performed By: #### L BCLH #### [facility] [address] [place] [address] Dr. Mundo Puri Eosinophils/100 WBC (Bld) 0.0 % Critically low 0.9-7. 0 [facility] Comment on above: Performed By: #### L BCLH #### [facility] [address] [place] [address] Dr. Mundo Puri Erythrocyte distribution width (RBC) [Ratio] 13.0 % Normal 11.0-15.0 [facility] Comment on above: Performed By: #### L BCL #### [facility] [address] [place] [address] Dr. Mundo Puri Hematocrit (Bld) [Volume fraction] 38.9 % Normal 36.0-48.0 [facility] Comment on above: Performed By: #### L BCL #### [facility] [address] [place] [address] Dr. Mundo Puri Hemoglobin (Bld) [Mass/Vol] 13.5 g/dL Normal 12.0-16.0 [facility] Comment on above: Performed By: #### L BCL #### [facility] [address] [place] [address] Dr. Mundo Puri IG # 0.03 10e3/ul Normal 0.00-0.03 [facility] Comment on above: Performed By: #### L BCL #### [facility] [address] [place] [address] Dr. Mundo Puri IG % 0.3 % Normal 0.0-0.5 [facility] Comment on above: Performed By: #### L BCLH #### [facility] [address] [place] [address] Dr. Mundo Puri LYMPH # 2.3 103/ul Normal 1.2-3.8 [facility] Comment on above: Performed By: #### L BCLH #### [facility] [address] [place] [address] Dr. Mundo Puri Lymphocytes/100 WBC (Bld) 26.7 % Normal 20.5-60.0 [facility] Comment on above: Performed By: #### L BCLH #### [facility] [address] [place] [address] Dr. Mundo Puri MANUAL DIFF REQ NO Normal [facility] Comment on above: Performed By: #### L BCLH #### [facility] [address] [place] [address] Dr. Mundo Puri MCH (RBC) [Entitic mass] 29.9 pg Normal 26.7-34.0 [facility] Comment on above: Performed By: #### L BCLH #### [facility] [address] [place] [address] Dr. Mundo Puri MCHC (RBC) [Mass/Vol] 34.7 g/dL Normal 29.9-35.2 [facility] Comment on above: Performed By: #### L BCLH #### [facility] [address] [place] [address] Dr. Mundo Puri MCV (RBC) [Entitic vol] 86.1 fL Normal 81.0-99.0 [facility] Comment on above: Performed By: #### L BCLH #### [facility] [address] [place] [address] Dr. Mundo Puri MONO # 0.7 103/ul Normal 0.3-0.8 [facility] Comment on above: Performed By: #### L BCLH #### [facility] [address] [place] [address] Dr. Mundo Puri Monocytes/100 WBC (Bld) 8.0 % Normal 1.7-12.0 [facility] Comment on above: Performed By: #### L BCLH #### [facility] [address] [place] [address] Dr. Mundo Puri NEUT # 5.7 103/ul Normal 1.4-6.5 [facility] Comment on above: Performed By: #### L BCL #### [facility] [address] [place] [address] Dr. Mundo Puri Neutrophils/100 WBC (Bld) 64.8 % Normal 43.0-75.0 [facility] Comment on above: Performed By: #### L BCLH #### [facility] [address] [place] [address] Dr. Mundo Puri Platelet mean volume (Bld) [Entitic vol] 12.0 fL Normal 9.5-13.5 [facility] Comment on above: Performed By: #### L BCLH #### [facility] [address] [place] [address] Dr. Mundo Puri PLT 199 103/ul Normal 150-450 [facility] Comment on above: Performed By: #### L BCLH #### [facility] [address] [place] [address] Dr. Mundo Puri RBC 4.52 106/ul Normal 4.20-5.40 [facility] Comment on above: Performed By: #### L BCLH #### [facility] [address] [place] [address] Dr. Mundo Puri WBC 8.8 103/ul Normal 4.0-11.0 [facility] Comment on above: Performed By: #### L BCLH #### [facility] [address] [place] [address] Dr. Mundo Puri ER URINE PROFILEon 3 Bilirubin Ql (U) Negative Normal NEGATIVE [facility] Comment on above: Performed By: #### I FRANCINE VITAD #### [facility] [address] [place] [address] Dr. Mundo Puri Clarity (U) CLEAR Normal CLEAR [facility] Comment on above: Performed By: #### I FRANCINE VITAD #### [facility] [address] [place] [address] Dr. Mundo Puri Color (U) LT. YELLOW Normal YELLOW [facility] Comment on above: Performed By: #### I FRANCINE VITAD #### [facility] [address] [place] [address] Dr. Mundo BOWIE A micrscopic examination will be performed if indicated. Normal [facility] Comment on above: Performed By: #### I FRANCINE, VITAD #### [facility] [address] [place] [address] Dr. Mundo Puri Glucose Ql (U) Negative Normal NEGATIVE [facility] Comment on above: Performed By: #### I FRANCINE, VITAD #### [facility] [address] [place] [address] Dr. Mundo Puri Hemoglobin Ql (U) Negative Normal NEGATIVE [facility] Comment on above: Performed By: #### I FRANCINE VITAD #### [facility] [address] [place] [address] Dr. Mundo Puri Ketones Ql (U) >=80 Abnormal NEGATIVE [facility] Comment on above: Performed By: #### I FRANCINE VITAD #### [facility] [address] [place] [address] Dr. Mundo Puri LEUKOCYTES Negative Normal NEGATIVE [facility] Comment on above: Performed By: #### I FRANCINE VITAD #### [facility] [address] [place] [address] Dr. Mundo Puri Nitrite Ql (U) Negative Normal NEGATIVE [facility] Comment on above: Performed By: #### I FRANCINE VITAD #### [facility] [address] [place] [address] Dr. Mundo Puri pH (U) 6.0 [pH] Normal 5-9 [facility] Comment on above: Performed By: #### I FRANCINE VITAD #### [facility] [address] [place] [address] Dr. Mundo Puri SPEC GRAVITY 1.020 Normal 1.005-<=1.02 5 [facility] Comment on above: Performed By: #### I FRANCINE VITAD #### [facility] [address] [place] [address] Dr. Mundo Puri UA PROTEIN Negative Normal NEGATIVE/ TRACE [facility] Comment on above: Performed By: #### I FRANCINE VITAD #### [facility] [address] [place] [address] Dr. Mundo Puri UR MICRO IND NOT INDICATED Normal [facility] Comment on above: Performed By: #### I FRANCINE VITAD #### [facility] [address] [place] [address] Dr. Mundo Puri Urobilinogen Qn (U) 0.2 {Goldy'U}/dL Normal 0.2 - 1. 0 [facility] Comment on above: Performed By: #### I FRANCINE VITAD #### [facility] [address] [place] [address] Dr. Mundo Puri PROF 14(COMP METB)on 023 Albumin [Mass/Vol] 4.1 g/dL Normal 3.4-5.0 [facility] Comment on above: Performed By: #### C MP #### [facility] [address] [place] [address] Dr. Mundo Puri Albumin/Globulin [Mass ratio] 1.4 {ratio} Normal [facility] Comment on above: Performed By: #### C MP #### [facility] [address] [place] [address] Dr. Mundo Puri ALP [Catalytic activity/Vol] 59 U/L Normal 46-116 [facility] Comment on above: Performed By: #### C MP #### [facility] [address] [place] [address] Dr. Mundo Puri ALT [Catalytic activity/Vol] 17 U/L Normal 14-59 [facility] Comment on above: Performed By: #### C MP #### [facility] [address] [place] [address] Dr. Mundo Puri Anion gap [Moles/Vol] 15.2 mmol/L Normal Th e [facility] Comment on above: Performed By: #### C MP #### [facility] [address] [place] [address] Dr. Mundo Puri AST [Catalytic activity/Vol] 6 U/L Critically low 15-37 [facility] Comment on above: Performed By: #### C MP #### [facility] [address] [place], [place] [id number] Dr. Mundo Puri Bilirubin [Mass/Vol] 0.5 mg/dL Normal 0.2-1.0 [facility] Comment on above: Performed By: #### C MP #### [facility] [address] [place] [address] Dr. Mundo Puri Calcium [Mass/Vol] 8.9 mg/dL Normal 8.5-10.1 [facility] Comment on above: Performed By: #### C MP #### [facility] [address] [place] [address] Dr. Mundo Puri Chloride [Moles/Vol] 103 mmol/L Normal 98-107 [facility] Comment on above: Performed By: #### C MP #### [facility] [address] [place] [address] Dr. Mundo Puri CO2 [Moles/Vol] 22.2 mmol/L Normal 21.0-32.0 [facility] Comment on above: Performed By: #### C MP #### [facility] [address] [place] [address] Dr. Mundo Puri Creatinine [Mass/Vol] 0.48 mg/dL Critically low 0.55-1.02 [facility] Comment on above: Performed By: #### C MP #### [facility] [address] [place] [address] Dr. Mundo Puri EGFR-AF CENTRAL AFRICAN >60 Normal >=60 [facility] Comment on above: Performed By: #### C MP #### [facility] [address] [place] [address] Dr. Mundo Puri EGFR-NON AF CENTRAL AFRICAN >60 Normal >=60 [facility] Comment on above: Performed By: #### C MP #### [facility] [address] [place] [address] Dr. Mundo Puri Globulin (S) [Mass/Vol] 3.0 g/dL Normal T [facility] Comment on above: Performed By: #### C MP #### [facility] [address] [place] [address] Dr. Mundo Puir Glucose [Mass/Vol] 96 mg/dL Normal 74-106 [facility] Comment on above: Performed By: #### C MP #### [facility] [address] [address] [address] Mundo Puri Potassium [Moles/Vol] 3.4 mmol/L Critically low 3.5-5.1 [facility] Comment on above: Performed By: #### C MP #### [facility] [address] [address] [address] Mundo Puri Protein [Mass/Vol] 7.1 g/dL Normal 6.4-8.2 [facility] Comment on above: Performed By: #### C MP #### [facility] [address] [address] [address] Mundo Puri Sodium [Moles/Vol] 137 mmol/L Normal 136-145 [facility] Comment on above: Performed By: #### C MP #### [facility] [address] [address] [address] Mundo Puri Urea nitrogen [Mass/Vol] 5.0 mg/dL Critically low 7.0-18. 0 [facility] Comment on above: Performed By: #### C MP #### [facility] [address] [address] [address] Mundo Puri Urea nitrogen/Creatinine [Mass ratio] 10.4 mg/mg Normal [facility] Comment on above: Performed By: #### C MP #### [facility] [address] [address] [address] Mundo Puri PREG QUANT HCGon 07-13-2022 HCG QUANT 28068 mIU/mL Normal [facility] Comment on above: Performed By: #### L BCLH #### [facility] [address] [place] [address] Dr. Mundo Puri HCG RANGE SEE BELOW Normal [facility] Comment on above: Result Comment: 5-50 0.2-1 WEEK 50-500 1-2 WEEKS 100-5,000 2-3 WEEKS 500-10,000 3-4 WEEKS 1,000-50,000 4-5 WEEKS 10,000-100,000 5-6 WEEKS 15,000-200,000 6-8 WEEKS 10,000-100,000 2-3 MONTHS Performed By: #### L JALIL #### [facility] [address] [place] [address] Dr. Mundo Puri DHEA SERUMon 05-18-2022 Dehydroepiandrosterone (DHEA) 275 ng/dL Normal 31-701 [facility] Comment on above: Result Comment: Age 1 - 5 years 0 - 67 6 - 7 years 0 - 110 8 - 10 years 0 - 185 11 - 12 years 0 - 201 13 - 14 years 0 - 318 15 - 16 years 39 - 481 17 - 19 years 40 - 491 >19 years 31 - 701 Performed By: #### L JALIL #### [facility] [address] [place] [address] Dr. Mundo Puri DHEA-SULFATEon 05-14-2022 DHEA-Sulfate 556.0 ug/dL Critically high 110.0-431.7 [facility] Comment on above: Performed By: #### L JALIL #### [facility] [address] [place] [address] Dr. Mundo Puri FSHon 05-14-2022 FSH 3.1 mIU/mL Normal [facility] Comment on above: Result Comment: Adul t Female: Follicular phase 3.5 - 12.5 Ovulation phase 4.7 - 21.5 Luteal phase 1.7 - 7.7 Postmenopausal 25.8 - 134.8 Performed By: #### I NSULIN #### [facility] [address] [place] [address] Dr. Mundo Puri LUTEINIZING HORMONE (LH)on 0 05-14-2022 LH 2.2 mIU/mL Normal [facility] Comment on above: Result Comment: Adul t Female: Follicular phase 2.4 - 12.6 Ovulation phase 14.0 - 95.6 Luteal phase 1.0 - 11.4 Postmenopausal 7.7 - 58.5 Performed By: #### L LAZARUS #### [facility] [address] [place] [address] Dr. Mundo Puri CBC AUTO DIFFon 05-13-2022 BASO # 0.0 103/ul Normal 0.0-0.1 [facility] Comment on above: Performed By: #### C BC #### [facility] [address] [address] [address] Mundo Puri Basophils/100 WBC (Bld) 0.2 % Normal 0.2-2.0 [facility] Comment on above: Performed By: #### C BC #### [facility] [address] [place] [address] Dr. Mundo Puri EO # 0.0 103/ul Normal 0.0-0.7 [facility] Comment on above: Performed By: #### C BC #### [facility] [address] [place] [address] Dr. Mundo Puri Eosinophils/100 WBC (Bld) 0.0 % Critically low 0.9-7. 0 [facility] Comment on above: Performed By: #### C BC #### [facility] [address] [place] [address] Dr. Mundo Puri Erythrocyte distribution width (RBC) [Ratio] 13.1 % Normal 11.0-15.0 [facility] Comment on above: Performed By: #### C BC #### [facility] [address] [place] [address] Dr. Mundo Puri Hematocrit (Bld) [Volume fraction] 48.6 % Critically high 36.0-48.0 [facility] Comment on above: Performed By: #### C BC #### [facility] [address] [place] [address] Dr. Mundo Puri Hemoglobin (Bld) [Mass/Vol] 15.4 g/dL Normal 12.0-16.0 [facility] Comment on above: Performed By: #### C BC #### [facility] [address] [place] [address] Dr. Mundo Puri IG # 0.01 10e3/ul Normal 0.00-0.03 [facility] Comment on above: Performed By: #### C BC #### [facility] [address] [place] [address] Dr. Mundo Puri IG % 0.2 % Normal 0.0-0.5 [facility] Comment on above: Performed By: #### C BC #### [facility] [address] [place] [address] Dr. Mundo Puri LYMPH # 1.5 103/ul Normal 1.2-3.8 [facility] Comment on above: Performed By: #### C BC #### [facility] [address] [place] [address] Dr. Mundo Puri Lymphocytes/100 WBC (Bld) 26.8 % Normal 20.5-60.0 [facility] Comment on above: Performed By: #### C BC #### [facility] [address] [place] [address] Dr. Mundo Puri MANUAL DIFF REQ NO Normal [facility] Comment on above: Performed By: #### C BC #### [facility] [address] [place] [address] Dr. Mundo Puri MCH (RBC) [Entitic mass] 28.8 pg Normal 26.7-34.0 [facility] Comment on above: Performed By: #### C BC #### [facility] [address] [place] [address] Dr. Mundo Puri MCHC (RBC) [Mass/Vol] 31.7 g/dL Normal 29.9-35.2 [facility] Comment on above: Performed By: #### C BC #### [facility] [address] [place] [address] Dr. Mundo Puri MCV (RBC) [Entitic vol] 91.0 fL Normal 81.0-99.0 [facility] Comment on above: Performed By: #### C BC #### [facility] [address] [place] [address] Dr. Mundo Puri MONO # 0.5 103/ul Normal 0.3-0.8 [facility] Comment on above: Performed By: #### C BC #### [facility] [address] [place] [address] Dr. Mundo Puri Monocytes/100 WBC (Bld) 8.9 % Normal 1.7-12.0 [facility] Comment on above: Performed By: #### C BC #### [facility] [address] [place] [address] Dr. Mundo Puri NEUT # 3.5 103/ul Normal 1.4-6.5 [facility] Comment on above: Performed By: #### C BC #### [facility] [address] [place] [address] Dr. Mundo Puri Neutrophils/100 WBC (Bld) 63.9 % Normal 43.0-75.0 [facility] Comment on above: Performed By: #### C BC #### [facility] [address] [place] [address] Dr. Mundo Puri Platelet mean volume (Bld) [Entitic vol] 13.2 fL Normal 9.5-13.5 [facility] Comment on above: Performed By: #### C BC #### [facility] [address] [place] [address] Dr. Mundo Puri PLT 217 103/ul Normal 150-450 [facility] Comment on above: Performed By: #### C BC #### [facility] [address] [place] [address] Dr. Mundo Puri RBC 5.34 106/ul Normal 4.20-5.40 [facility] Comment on above: Performed By: #### C BC #### [facility] [address] [place] [address] Dr. Mundo Puri WBC 5.4 103/ul Normal 4.0-11.0 [facility] Comment on above: Performed By: #### C BC #### [facility] [address] [place] [address] Dr. Mundo Puri FREE T4on 05-13-2022 Free T4 [Mass/Vol] 0.83 ng/dL Normal 0.76-1.46 [facility] Comment on above: Performed By: #### I NSULIN #### [facility] [address] [place] [address] Dr. Mundo Puri GLYCOHEMOGLOBIN A1Con 2022 ADA RECOMMENDATION SEE BELOW Normal [facility] Comment on above: Result Comment: ADA RECOMMENDED LIMIT 4.0 - 6.0 ADA THERAPEUTIC TARGET < 7.0 ACTION SUGGESTED > 7.0 Performed By: #### I NSULIN #### [facility] [address] [place] [address] Dr. Mundo Puir Glucose [Mass/Vol] 105 mg/dL Normal [facility] Comment on above: Performed By: #### I NSULIN #### [facility] [address] [place] [address] Dr. Mundo Puri HbA1c (Bld) [Mass fraction] 5.3 % Normal 4.5-6.2 [facility] Comment on above: Performed By: #### I NSULIN #### [facility] [address] [place] [address] Dr. Mundo Puri PREG QUANT HCGon 05-13-2022 HCG QUANT <1 Normal [facility] Comment on above: Performed By: #### T SH, PREGQNT #### [facility] [address] [place] [address] Dr. Mundo Puri HCG RANGE SEE BELOW Normal [facility] Comment on above: Result Comment: 5-50 0.2-1 WEEK 50-500 1-2 WEEKS 100-5,000 2-3 WEEKS 500-10,000 3-4 WEEKS 1,000-50,000 4-5 WEEKS 10,000-100,000 5-6 WEEKS 15,000-200,000 6-8 WEEKS 10,000-100,000 2-3 MONTHS Performed By: #### T SH, PREGQNT #### [facility] [address] [place] [address] Dr. Mundo Puri TSHon 05-13-2022 TSH 1.385 uIU/mL Normal 0.358-3.740 [facility] Comment on above: Performed By: #### T SH, PREGQNT #### [facility] [address] [place] [address] Dr. Mundo Puri US PELVIS AND TRANSVAGon US PELVIS AND TRANSVAG EXAMINATION: US PELVIS AND TRANSVAG HISTORY: Pain in pelvis COMPARISON: No relevant comparison available. FINDINGS: Transabdominal and transvaginal images The uterus is retroverted. Normal in size and myometrial echotexture measuring 7.0 x 3.6 x 5.4 cm. Contour abnormality consistent with a bicornuate uterus Endometrium measures 7.7 mm, normal. The right ovary is normal in appearance measuring 2.8 x 1.4 x 2.1 cm. Normal color Doppler flow. The left ovary is normal in size measuring 3.7 x 2.2 x 3.7 cm. Normal color and Doppler flow. Area of anechoic echogenicity measuring 2.5 x 1.8 x 1.3 cm IMPRESSION: 2.5 cm left ovarian simple cyst Findings suggesting a bicornuate uterus Electronically authenticated by: ASHLEY CATES Date: 2022-05-13 12:25 Normal [facility] INSULINon 08-21-2021 Insulin 6.9 uIU/mL Normal 2.6-24.9 [facility] Comment on above: Performed By: #### I NSULIN #### [facility] [address] [place] [address] Dr. Mundo Puri CBC AUTO DIFFon 08-20-2021 BASO # 0.0 103/ul Normal 0.0-0.1 [facility] Comment on above: Performed By: #### L BCLH #### [facility] [address] [place] [address] Dr. Mundo Puri Basophils/100 WBC (Bld) 0.3 % Normal 0.2-2.0 [facility] Comment on above: Performed By: #### L BCLH #### [facility] [address] [place] [address] Dr. Mundo Puri EO # 0.0 103/ul Normal 0.0-0.7 [facility] Comment on above: Performed By: #### L BCLH #### [facility] [address] [place] [address] Dr. Mundo Puri Eosinophils/100 WBC (Bld) 0.0 % Critically low 0.9-7. 0 [facility] Comment on above: Performed By: #### L BCLH #### [facility] [address] [place] [address] Dr. Mundo Puri Erythrocyte distribution width (RBC) [Ratio] 12.7 % Normal 11.0-15.0 [facility] Comment on above: Performed By: #### L BCLH #### [facility] [address] [place] [address] Dr. Mundo Puri Hematocrit (Bld) [Volume fraction] 43.3 % Normal 36.0-48.0 [facility] Comment on above: Performed By: #### L BCLH #### [facility] [address] [place] [address] Dr. Mundo Puri Hemoglobin (Bld) [Mass/Vol] 14.7 g/dL Normal 12.0-16.0 [facility] Comment on above: Performed By: #### L BCLH #### [facility] [address] [place] [address] Dr. Mundo Puir IG # 0.02 10e3/ul Normal 0.00-0.03 [facility] Comment on above: Performed By: #### L BCLH #### [facility] [address] [place] [address] Dr. Mundo Puri IG % 0.3 % Normal 0.0-0.5 [facility] Comment on above: Performed By: #### L BCLH #### [facility] [address] [place] [address] Dr. Mundo Puri LYMPH # 1.8 103/ul Normal 1.2-3.8 [facility] Comment on above: Performed By: #### L BCLH #### [facility] [address] [place] [address] Dr. Mundo Puri Lymphocytes/100 WBC (Bld) 24.4 % Normal 20.5-60.0 [facility] Comment on above: Performed By: #### L BCLH #### [facility] [address] [place] [address] Dr. Mundo Puri MANUAL DIFF REQ NO Normal [facility] Comment on above: Performed By: #### L BCLH #### [facility] [address] [place] [address] Dr. Mundo Puri MCH (RBC) [Entitic mass] 29.9 pg Normal 26.7-34.0 [facility] Comment on above: Performed By: #### L BCLH #### [facility] [address] [address] [address] Mundo Puri MCHC (RBC) [Mass/Vol] 33.9 g/dL Normal 29.9-35.2 [facility] Comment on above: Performed By: #### L BCLH #### [facility] [address] [place] [address] Dr. Mundo Puri MCV (RBC) [Entitic vol] 88.0 fL Normal 81.0-99.0 [facility] Comment on above: Performed By: #### L BCLH #### [facility] [address] [place] [address] Dr. Mundo Puri MONO # 0.6 103/ul Normal 0.3-0.8 [facility] Comment on above: Performed By: #### L BCLH #### [facility] [address] [place] [address] Dr. Mundo Puri Monocytes/100 WBC (Bld) 8.2 % Normal 1.7-12.0 [facility] Comment on above: Performed By: #### L BCLH #### [facility] [address] [place] [address] Dr. Mundo Puri NEUT # 4.8 103/ul Normal 1.4-6.5 [facility] Comment on above: Performed By: #### L BCLH #### [facility] [address] [place] [address] Dr. Mundo Puri Neutrophils/100 WBC (Bld) 66.8 % Normal 43.0-75.0 [facility] Comment on above: Performed By: #### L BCLH #### [facility] [address] [place] [address] Dr. Mundo Puri Platelet mean volume (Bld) [Entitic vol] 12.1 fL Normal 9.5-13.5 [facility] Comment on above: Performed By: #### L BCLH #### [facility] [address] [place] [address] Dr. Mundo Puri PLT 224 103/ul Normal 150-450 [facility] Comment on above: Performed By: #### L BCLH #### [facility] [address] [address] [address] Mundo Puri RBC 4.92 106/ul Normal 4.20-5.40 [facility] Comment on above: Performed By: #### L BCLH #### [facility] [address] [address] [address] Mundo Puri WBC 7.2 103/ul Normal 4.0-11.0 [facility] Comment on above: Performed By: #### L BCLH #### [facility] [address] [address] [address] Mundo Puri FREE THYROXINE INDEX T7on FTI 2.66 Normal 1.30-4.50 [facility] Comment on above: Performed By: #### I NSULIN #### [facility] [address] [place] [address] Dr. Mundo Puri T3U 35.0 % Normal 30.0-39.0 [facility] Comment on above: Performed By: #### I NSULIN #### [facility] [address] [place] [address] Dr. Mundo Puri T4 [Mass/Vol] 7.60 ug/dL Normal 4.80-13.90 [facility] Comment on above: Performed By: #### I NSULIN #### [facility] [address] [place] [address] Dr. Mundo Puri GLYCOHEMOGLOBIN A1Con 2021 ADA RECOMMENDATION SEE BELOW Normal [facility] Comment on above: Result Comment: ADA RECOMMENDED LIMIT 4.0 - 6.0 ADA THERAPEUTIC TARGET < 7.0 ACTION SUGGESTED > 7.0 Performed By: #### I NSULIN #### [facility] [address] [place] [address] Dr. Mundo Puri Glucose [Mass/Vol] 103 mg/dL Normal [facility] Comment on above: Performed By: #### I NSULIN #### [facility] [address] [place] [address] Dr. Mundo Puri HbA1c (Bld) [Mass fraction] 5.2 % Normal 4.5-6.2 [facility] Comment on above: Performed By: #### I NSULIN #### [facility] [address] [address] [address] Mundo Puri IRONon 08-20-2021 Iron [Mass/Vol] 122.0 ug/dL Normal 50.0-170.0 [facility] Comment on above: Performed By: #### I KATERINA ESCAMILLA #### [facility] [address] [place] [address] Dr. Mundo Puri LIPID PROFILEon 08-20-2021 CHOL-HDL RATIO NORM SEE BELOW Normal [facility] Comment on above: Result Comment: 3.3 - 4.4 LOW RISK 4.4 - 7.1 AVERAGE RISK 7.1 - 11.0 MODERATE RISK >11.0 HIGH RISK Performed By: #### I NSULIN #### [facility] [address] [place] [address] Dr. Mundo Puri Cholesterol [Mass/Vol] 143 mg/dL Normal <=200 Th [facility] Comment on above: Performed By: #### I NSULIN #### [facility] [address] [place] [address] Dr. Mundo Puri Cholesterol in HDL [Mass/Vol] 64 mg/dL Critically high 40-60 [facility] Comment on above: Performed By: #### I NSULIN #### [facility] [address] [place] [address] Dr. Mundo Puri Cholesterol in LDL [Mass/Vol] 73.4 mg/dL Normal [facility] Comment on above: Performed By: #### I NSULIN #### [facility] [address] [place] [address] Dr. Mundo Puri Cholesterol.total/Choleste rol in HDL [Mass ratio] 2.2 {ratio} Normal [facility] Comment on above: Performed By: #### I NSULIN #### [facility] [address] [place] [address] Dr. Mundo Puri HDL NORMAL > or = 60 mg/dl - LOW CARDIOVASCULAR RISK <40 mg/dl - HIGH CARDIOVASCULAR RISK Normal [facility] Comment on above: Performed By: #### I NSULIN #### [facility] [facility] [address] [place] [address] Dr. Mundo Puri LDL CALC NORMAL SEE BELOW Normal [facility] Comment on above: Result Comment: <100 mg/dl OPTIMAL 100 - 129 mg/dl NEAR OR ABOVE OPTIMAL 130 - 159 mg/dl BORDERLINE HIGH 160 - 189 mg/dl HIGH >190 mg/dl VERY HIGH Performed By: #### I NSULIN #### [facility] [address] [place] [address] Dr. Mundo Puri Triglyceride [Mass/Vol] 28 mg/dL Normal <=150 T [facility] Comment on above: Performed By: #### I NSULIN #### [facility] [address] [place] [address] Dr. Mundo Puri VLDL CALC 5.6 mg/dL Normal [facility] Comment on above: Performed By: #### I NSULIN #### [facility] [address] [place] [address] Dr. Mundo Puri PROF 14(COMP METB)on 022 Albumin [Mass/Vol] 4.3 g/dL Normal 3.4-5.0 [facility] Comment on above: Performed By: #### I NSULIN #### [facility] [address] [place] [address] Dr. Mundo Puri Albumin/Globulin [Mass ratio] 1.2 {ratio} Normal [facility] Comment on above: Performed By: #### I NSULIN #### [facility] [address] [place] [address] Dr. Mundo Puri ALP [Catalytic activity/Vol] 58 U/L Normal 46-116 [facility] Comment on above: Performed By: #### I NSULIN #### [facility] [address] [place] [address] Dr. Mundo Puri ALT [Catalytic activity/Vol] 22 U/L Normal 14-59 [facility] Comment on above: Performed By: #### I NSULIN #### [facility] [address] [place] [address] Dr. Mundo Puri Anion gap [Moles/Vol] 11.8 mmol/L Normal Th e [facility] Comment on above: Performed By: #### I NSULIN #### [facility] [address] [address] [address] Mundo Puri AST [Catalytic activity/Vol] 16 U/L Normal 15-37 [facility] Comment on above: Performed By: #### I NSULIN #### [facility] [address] [address] [address] Mundo Puri Bilirubin [Mass/Vol] 0.6 mg/dL Normal 0.2-1.0 [facility] Comment on above: Performed By: #### I NSULIN #### [facility] [address] [address] [address] Mundo Puri Calcium [Mass/Vol] 9.2 mg/dL Normal 8.5-10.1 [facility] Comment on above: Performed By: #### I NSULIN #### [facility] [address] [address] [address] Mundo Puri Chloride [Moles/Vol] 102 mmol/L Normal 98-107 [facility] Comment on above: Performed By: #### I NSULIN #### [facility] [address] [address] [address] Mundo Puri CO2 [Moles/Vol] 28.0 mmol/L Normal 21.0-32.0 [facility] Comment on above: Performed By: #### I NSULIN #### [facility] [address] [address] [address] Mundo Puri Creatinine [Mass/Vol] 0.67 mg/dL Normal 0.55-1.02 [facility] Comment on above: Performed By: #### I NSULIN #### [facility] [address] [address] [address] Mundo Puri EGFR-AF CENTRAL AFRICAN >60 Normal >=60 [facility] Comment on above: Performed By: #### I NSULIN #### [facility] [address] [address] [address] Mundo Puri EGFR-NON AF CENTRAL AFRICAN >60 Normal >=60 [facility] Comment on above: Performed By: #### I NSULIN #### [facility] [address] [place] [address] Dr. Mundo Puri Globulin (S) [Mass/Vol] 3.6 g/dL Normal T [facility] Comment on above: Performed By: #### I NSULIN #### [facility] [address] [place] [address] Dr. Mundo Puri Glucose [Mass/Vol] 90 mg/dL Normal 74-106 [facility] Comment on above: Performed By: #### I NSULIN #### [facility] [address] [place] [address] Dr. Mundo Puri Potassium [Moles/Vol] 3.8 mmol/L Normal 3.5-5.1 [facility] Comment on above: Performed By: #### I NSULIN #### [facility] [address] [place] [address] Dr. Mundo Puri Protein [Mass/Vol] 7.9 g/dL Normal 6.4-8.2 [facility] Comment on above: Performed By: #### I NSULIN #### [facility] [address] [place] [address] Dr. Mundo Puri Sodium [Moles/Vol] 138 mmol/L Normal 136-145 [facility] Comment on above: Performed By: #### I NSULIN #### [facility] [address] [place] [address] Dr. Mundo Puri Urea nitrogen [Mass/Vol] 13.0 mg/dL Normal 7.0-18.0 [facility] Comment on above: Performed By: #### I NSULIN #### [facility] [address] [place] [address] Dr. Mundo Puri Urea nitrogen/Creatinine [Mass ratio] 19.4 mg/mg Normal [facility] Comment on above: Performed By: #### I NSULIN #### [facility] [address] [place] [address] Dr. Mundo Puri TSHon 08-20-2021 TSH 1.483 uIU/mL Normal 0.358-3.740 [facility] Comment on above: Performed By: #### I NSULIN #### [facility] [address] [place], [place] [address] Dr. Mundo Puri TSH RANGE SEE BELOW Normal [facility] Comment on above: Result Comment: <0.3 4 UIU/ml HYPERTHYROID 0.34-5.60 UIU/ml EUTHYROID >5.60 UIU/ml HYPOTHYROID Performed By: #### I NSULIN #### [facility] [address] [address] [address] Mundo Puri VITAMIN D 25 OHon 08-20-2021 VIT D 25-OH 24.2 ng/mL Normal [facility] Comment on above: Performed By: #### I FRANCINE, VITAD #### [facility] [address] [place] [address] Dr. Mundo Puri VIT D RANGES SEE BELOW Normal [facility] Comment on above: Result Comment: <20 ng/mL Vit D deficient 20 - <30 ng/mL Vit D insufficient 30 - 100 ng/mL Vit D sufficient >100 ng/mL Potential Toxicity Performed By: #### I FRANCINE, VITAD #### [facility] [address] [place] [address] Dr. Mundo Puri Encounters Encounter Date Encounter Type Care Provider Facility Start: 07-12-2024 End: 07-12-2024 ambulatory Priyanka Mendiola MD Work Phone: [facility] Work Phone: Start: 07-12-2024 End: 07-12-2024 Departed Referred Priyanka Mendiola MD Work Phone: [facility] Start: 05-15-2023 End: 05-15-2023 ambulatory MURIEL GARCIA Not Available Start: 08-11-2022 End: 08-12-[address] MURIEL GARCIA . Facility:[facility] Start: 08-11-2022 End: 08-12-[address] MURIEL GARCIA . Facility:[facility] Start: 07-28-2022 End: 07-29-[address] PRIYANKA MENDIOLA . Facility:[facility] Start: 07-14-2022 End: 07-14-[address] RAMÓN AYALA . Facility:[facility] Start: 07-13-2022 End: 07-14-[address] DOCTOR BENNETT Facility:[facility] Start: 05-13-2022 End: 05-14-[address] MURIEL GARCIA . Facility:[facility] Start: 08-20-2021 End: 08-21-[address] PRIYANKA MENDIOLA . Facility:[facility] Plan of Treatment Date Care Activity Detail Author Start: 07-12-2024 Bacteria identified in Urine by Culture Urine Culture [facility] Start: 07-12-2024 Urine culture [facility] Payers Date Payer Category Payer Unknown [id number] 2.16.84 [id number] 1999 Unknown [id number] 2.16.84 [id number] 1999 Unknown [id number] 2.16.84 [id number] 1999 Unknown [id number] 2.16.84 [id number] 1999 Unknown [id number] 2.16.84 [id number] 1999 Unknown [id number] 2.16.84 [id number] 1999 Unknown [id number] 2.16.84 [id number] 1999 Unknown [id number] 2.16.84 [id number] 1959 Unknown [id number] Social History Date Type Detail Facility [facility] Work Phone: Start: 07-13-2024 Sex Female (finding) [facility] Start: 2000 Sex Assigned At Female F [facility] Evaluation note Note Date & Type Note Facility Evaluation note No assessment information availa ble [facility] Work Phone: Summary Purpose Family History No Family History Records FoundNo Family History Records Found Advance Directives Advance Directive Response Recorded Date/ Time Advance Directives No March 17, 2017 2:29pm Additional Source Comments INFORMATION SOURCE (unrecogn ized section and content) DATE CREATED AUTHOR 08/17/2022 [facility] DATE CREATED AUTHOR AUTHOR'S ANGELLA ATTAMERA 05/16/2023 [facility] Care Teams (unrecognized sec tion and content) Team Status: Active Member Role Status Dates Priyanka Mendiola MD Primary Care Provider Active Team Status: Inactive Member Role Status Dates Priyanka Mendiola MD Primary Care Provider Active Start: July 12, 2024 End: July 12, 2024 Dany Murphy DO Attending Provider Active Start : July 12, 2024 End: July 12, 2024 Goals (unrecognized section and content) Goals may be documented in a n alternate section FOR RECORDS PERTAINING TO PATIENTS WHO ARE OR HAVE BEEN ENROLLED IN A CHEMICAL DEPENDENCY/SUBSTANCEABUSE PROGRAM, SOME INFORMATION MAY BE OMITTED. This clinical summary was aggregated from multiple sources. Caution should be exercised in using it in the provision of clinical care. This summary normalizes information from multiple sources, and as a consequence, information in this document may materially change the coding, format and clinical context of patient data. In addition, data may be omitted in some cases. CLINICAL DECISIONS SHOULD BE BASED ON THE PRIMARY CLINICAL RECORDS. [employer] provides no warranty or guarantee of the accuracy or completeness of information in this document.
--- NOTE | 2024-07-13 07:00 | PC.NURSE ---
Assumed care for this pt, she is alert, states she is feeling better but still weak, updated pt on plan of care
[2024-07-13 08:04] LABS: Bilirubin Urine NEGATIVE (NEGATIVE); Blood Urine NEGATIVE (NEGATIVE); Clarity Urine CLEAR (CLEAR); Color Urine YELLOW (YELLOW); Glucose Urine UA NEGATIVE (NEGATIVE); Ketones Urine >=80 mg/dL (NEGATIVE); Leukocyte Esterase Urine NEGATIVE (NEGATIVE); Nitrite Urine NEGATIVE (NEGATIVE); Protein Urine NEGATIVE (NEG/TRACE); Specific Gravity Urine 1.015 (1.005-1.025); Urobilinogen Urine 0.2 EU/dL (0.2-1.0)
[2024-07-13 08:19] LABS: Bacteria Urine TRACE #/HPF (NONE SEEN); Mucus Urine NONE SEEN (NONE SEEN); RBC Urine NONE SEEN #/HPF (0-2); Squamous Epithelial Cell Urine RARE #/LPF (NONE/RARE); WBC Urine NONE SEEN #/HPF (NONE SEEN)
[2024-07-13 08:20] LABS: Cast Seen? NONE SEEN #/LPF (NONE SEEN); Crystals Seen? None Seen #/HPF (None Seen); Urine Culture Indicated NO
[2024-07-13] MEDS: FAMOTIDINE/PF 20 MG/2 ML VIAL IV (08:32)
[2024-07-13 09:36] VITALS: BP 125/74; PULSE 74; O2SAT 100
== END 2024-07-13 10:16 | disposition home or self-care (01) ==
PROVIDERS: Emergency Provider Emergency Medicine; PCP Family Medicine
DX: K29.70 Gastritis, unspecified, without bleeding (principal)
CPT/HCPCS: 36415; 74177; 76830; 80048; 80076; 81001; 82150; 83690; 85025; 96361; 96374; 96375; 99285; J2405; J3490; Q9967

== ENCOUNTER 2024-07-23 15:35 | Outpatient (REF) | payer OTHER, SELFPAY ==
[2024-07-27 07:07] LABS: Age Gdln ACOG Testing Note (.); IGP, rfx Aptima HPV ASCU Note (.)
== END 2024-07-23 15:36 | disposition home or self-care (01) ==
LOC: LAB 15:35
PROVIDERS: PCP Family Medicine; Visit Provider Obstetrics & Gynecology
DX: Z01.419 Encounter for gynecological examination (general) (routine) without abnormal findings (principal)
CPT/HCPCS: 88175

== ENCOUNTER 2024-11-29 08:29 | Outpatient (OUT) | payer OTHER, SELFPAY ==
--- OUTSIDE RECORDS SUMMARY | 2024-11-29 08:37 | XMS_ITS | CCD ---
Author Organization [facility] Care Team Providers Care Roading Engineer Name Role Phone CARIDAD ., DR LLAMAS Attending Unavailable WEST, DR ASHLEY Wray Consulting Unavailable CARIDAD ., DR LLAMAS Admitting Unavailable HOY ., DR MATHEW Primary Care Unavailable CARIDAD ., DR LLAMAS Consulting Unavailable REQUEST, DR MCDERMOTT LISTED Consulting Unavaila ble MARKER ., DR MELGAR Admitting Unavailable MISC, DR AVILA Primary Care Unavailable MARKER ., DR MELGAR Attending Unavailable MARKER ., DR MELGAR Consulting Unavailable CARIDAD ., DR LLAMAS Admitting Unavailable HOY ., DR MATHEW Primary Care Unavailable CARIDAD ., DR LLAMAS Attending Unavailable CARIDAD ., DR LLAMAS Consulting Unavailable HOY ., DR MATHEW Admitting Unavailable HOY ., DR MATHEW Attending Unavailable HOY ., DR MATHEW Consulting Unavailable MISC, DR AVILA Primary Care Unavailable CARIDAD ., DR LLAMAS Attending Unavailable CARIDAD ., DR LLAMAS Admitting Unavailable WEST, DR ASHLEY Wray Consulting Unavailable MISC, DR AVILA Primary Care Unavailable CARIDAD ., DR LLAMAS Consulting Unavailable MISC, DR AVILA Primary Care Unavailable CARIDAD ., DR LLAMAS Attending Unavailable CARIDAD ., DR LLAMAS Consulting Unavailable CARIDAD ., DR LLAMAS Admitting Unavailable HOY ., DR MATHEW Primary Care Unavailable MARIAN TORO Admitting Unavailable MARIAN TORO Attending Unavailable MARIAN TORO Consulting Unavailable Priyanka Mendiola MD Primary Care Provider [phone] Dany Murphy DO Attending Provider [phone] Dany Murphy Admitting Unavailable Dany Murphy Attending Unavailable Priyanka Mendiola Primary Care Unavailable Priyanka Mendiola MD Primary Care Provider [phone] MURIEL MCLEAN Attending Unavailable NILL, Miki R Attending Unavailable Priyanka Mendiola Referring Unavailable Allergies Allergy Classification Reported Allergen(s) Allergy Type Date of Onset Reaction(s) Facility (1 source) No Known Medication Allergies; Translations: [No Known Medication Allergies] Propensity to adverse reactions (disorder) [facility] Repository Medications Current Medications Medication Drug Class(es) Dates Sig (Normalized) Sig (Original) citalopram 40 mg oral tablet (6 sources) Serotonin Reuptake Inhibitor Start: 07-10-2024 take 1 tablet by mouth once daily citalopram (CeleXA) 40 MG tablet Take 40 mg by mouth Daily 07/10/2024 Active Start: 01-02-2023 End: 07-23-2024 take 1 tablet by mouth in the morning citalopram (CeleXA) 20 MG tablet Indications: Episode of recurrent major depressive disorder, unspecified depression episode severity (CMS/HCC) Take 1 tablet (20 mg) by mouth in the morning. 30 tablet 11 01/02/2023 07/23/2024 Discontinued etonogestrel 68 mg drug implant (4 sources) Progestin Start: 05-15-2023 End: 05-14-2026 etonogestrel-eluting 68 mg contraceptive implant 1 each Completed/Discontinued Medications Medication Drug Class(es) Dates Sig (Normalized) Sig (Original) Vit-DSS-Fe Fum-FA (PNV FE FUM/DOCUSATE/FOLIC ACID PO) (3 sources) End: 07-23-2024 Vit-DSS-Fe Fum-FA (PNV FE FUM/DOCUSATE/FOLIC ACID PO) PNV 07/23/2024 Discontinued Vit-DSS -Fe Fum-FA (PNV FE FUM/DOCUSATE/FOLIC ACID PO) PNV Active sertraline 100 mg oral tablet (3 sources) Serotonin Reuptake Inhibitor End: 07-23-2024 sertraline (Zoloft) 100 MG tablet 1 (one) time each day at the same time. 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 therapy; Translations: [OTH LINING LAYER CURRENT DRUG THERAPY] Onset: 07-18-2022 Episodic Other complications of (1 source) Mild hyperemesis gravidarum; Translations: [MILD HYPEREMESIS GRAVIDARUM] Onset: 07-18-2022 Episodic Other and delivery including normal (2 sources) Encounter for supervision of other normal , first trimester; Translations: [Encounter for supervision of normal , unspecified, first trimester] Onset: 08-16-2022 Episodic Ovarian cyst (3 sources) Other ovarian cyst, left side; Translations: [Cyst of ovary] Onset: 05-15-2022 07-23-2024 Episodic Residual codes; unclassified (1 source) Weeks [...] Translations: [OTHER ABNORMAL GLUCOSE] Onset: 08-25-2021 Episodic Results Test Name Value Interpretation Reference Range Facility Ambulatory Visit Summaryon 0 08-13-2024 Ambulatory Visit Summary Ambulatory Visi t Summary JESSICA CHAN :2000 Visit Date:08/13/2024 Ambulatory Visit Instructions Your Care Team Attending Physician - JAIDA ORR, Miki Cadet Primary Care Physician - Priyanka Mendiola MD Referring Physician - Priyanka Mendiola MD This Is Your Medications List Contact prescribing physician if questions or concerns albuterol (Ventolin HFA 90 mcg/inh Aerosol-Adpt) cetirizine (cetirizine 10 mg Tab) citalopram (CeleXA 40 mg Tab) etonogestrel (Nexplanon 68 mg subcutaneous implant) meclizine (meclizine 25 mg Tab) Procedures Performed None. Discharge Vitals Heart Rate (Peripheral) 70 Respiratory Rate 16 Blood Pressure 116/74 Height 166.3 cm Height 65 in Weight 65.3 kg Weight 143.962 lb BMI 23.61 Medications What How Much When Instructions Unchanged albuterol (Ventolin HFA 90 mcg/ inh Aerosol-Adpt) 2 Inhalation Inhalation Every 4 hours as needed for Shortness of breath or wheezing Contact prescribing physician if questions or concerns Unchanged cetirizine (cetirizine 10 mg Tab) 1 Tablets By Mouth Every day Contact prescribing physician if questions or concerns Unchanged citalopram (CeleXA 40 mg Tab) 1 Tablets By Mouth Every day Contact prescribing physician if questions or concerns Unchanged etonogestrel (Nexplanon 68 mg subcutaneous implant) 1 Each Subcutaneous Once Contact prescribing physician if questions or concerns Unchanged meclizine (meclizine 25 mg Tab) 1 Tablets By Mouth Every 6 hours as needed for as needed for nausea/vomiting Contact prescribing physician if questions or concerns Allergies No Known Allergies No Known Medication Allergies Problems Ongoing - Any problem that you are currently receiving treatment for. Anxiety Asthma Eczema GERD (gastroesophageal reflux disease) Tension headache Patient Survey You may receive a survey via text or e-mail asking about your office visit. Please share your experience with us by completing your survey. We appreciate your feedback and thank you for choosing us for your care. Normal [facility] IGP,APTIMA HPV,AGE GDLNon AGE GDLN ACOG TESTING Note . [facility] Comment on above: TESTS RESULT FLAG UN ITS REF RANGE LAB Clinician Provided Cytology Information Source.............Cervix;Endocervix No. of containers..01 ThinPrep Vial Age Rajni Mojica... FLAG LEGEND: L-Low Normal,H-High Normal,LL-Alert Low,HH-Alert High <-Panic Low,>-Panic High,A-Abnormal,AA-Critical Abnormal Performed at: 01 =G [facility] [id number] Flavia Munguia MD, IGP, RFX APTIMA HPV ASCU Note . [facility] Comment on above: TESTS RESULT FLAG UN ITS REF RANGE LAB DIAGNOSIS: 02 NEGATIVE FOR INTRAEPITHELIAL LESION OR MALIGNANCY. Specimen adequacy: 02 Satisfactory for evaluation. Endocervical and/or squamous metaplastic cells (endocervical component) are present. Performed by: 02 Arlyn Barr, Assistant Manager/Embalmer ([facility]) . 02 Note: Note 02 The Pap smear is a screening test designed to aid in the detection of premalignant and malignant conditions of the uterine cervix. It is not a diagnostic procedure and should not be used as the sole means of detecting cervical cancer. Both false-positive and false-negative reports do occur. Test Methodology: Note 02 This liquid based ThinPrep(R) pap test was screened with the use of an image guided system. . 02 The HPV DNA reflex criteria were not met with this specimen result therefore, no HPV testing was performed. FLAG LEGEND: L-Low Normal,H-High Normal,LL-Alert Low,HH-Alert High <-Panic Low,>-Panic High,A-Abnormal,AA-Critical Abnormal Performed at: [address] [address] Flavia Munguia MD, Performed at: = - [facility] [id number] Artisan Plasterer: Flavia Munguia MD, Phone: [phone] Performed at: [facility] [address] [id number] Artisan Plasterer: Flavia Munguia MD, Phone: [phone] BRUSH-SPATULA CERVIX ENDOCERVIX [facility] HCG ( test) Ql (U)o n 07-23-2024 Interpretation and review of laboratory results Normal [facility] Healthcare Preg Test, Ur Negative Negative [facility] Urine Cultureon 07-12-2024 Bacteria identified Cx Nom (U) >100,000 colonies/ml mixed bacterial skin contaminants 2 Days PERFORMED BY: [place] [address] PATHOLOGIST LIGHT RAIL VEHICLE OPERATOR RENUKA LUTHER M.D. Normal [facility] Comment on above: Performed By: #### C UU #### [address] HEP B SURFACE ANTIGEN SCREEN on 08-12-2022 HBsAg Screen Negative Normal Negative [facility] Comment on above: Performed By: #### I KATERINA ESCAMILLA #### [facility] [address] [address] [address] Mundo Puri HEPATITIS C VIRUS AB W/ REFL EX QUANTon 08-12-2022 HCV AB Non-Reactive Normal Non Reactive [facility] Comment on above: Performed By: #### I FRANCINE, VITAD #### [facility] [address] [address] [address] Mundo Puri Interpretation: Comment Normal [facility] Comment on above: Result Comment: Not infected with HCV unless early or acute infection is suspected (which may be delayed in an immunocompromised individual), or other evidence exists to indicate HCV infection. Performed By: #### I FRANCINE, VITAD #### [facility] [address] [address] [address] Mundo Puri HIV 1 AND 2 WITH REFLEXon HIV Screen 4th Generation wRfx Non-Reactive Normal Non Reactive [facility] Comment on above: Result Comment: HIV Negative HIV-1/HIV-2 antibodies and HIV-1 p24 antigen were NOT detected. There is no laboratory evidence of HIV infection. Performed By: #### I FRANCINE, VITAD #### [facility] [address] [address] [address] Mundo Puri RPR QUANTon 08-12-2022 Rapid Plasma Reagin, Quant Non-Reactive Normal NonRea<1:1 [facility] Comment on above: Result Comment: Plea se Note: This test does not meet current guidelines for screening and diagnosis of syphilis. This test is intended for following treatment response in patients being treated for syphilis infection. To screen for syphilis infection, a reflex cascade that includes both RPR and a treponema-specific assay should be utilized, such as Treponema pallidum (Syphilis) Screening [place] (315271) or Rapid Plasma Reagin (RPR) Test With Reflex to Quantitative RPR and Confirmatory Treponema pallidum Antibodies (445664). Performed By: #### I FRANCINE, VITAD #### [facility] [address] [place] [address] Dr. Mundo Puri RUBELLA AB IGGon 08-12-2022 Rubella Antibodies, IgG 4.27 index Normal Immune >0.99 [facility] Comment on above: Result Comment: Non- immune <0.90 Equivocal 0.90 - 0.99 Immune >0.99 Performed By: #### L BCLH #### [facility] [address] [place] [address] Dr. Mundo Puri BOX TEST SENT OUTon 08-12-19 SENT TO REF LAB 08/11/2022 Normal [facility] Comment on above: Performed By: #### B OX #### [facility] [address] [place] [address] Dr. Mundo Puri CBC AUTO DIFFon 08-11-2022 BASO # 0.0 103/ul Normal 0.0-0.1 [facility] Comment on above: Performed By: #### I FRANCINE VITAD #### [facility] [address] [place] [address] Dr. Mundo Puri Basophils/100 WBC (Bld) 0.2 % Normal 0.2-2.0 [facility] Comment on above: Performed By: #### Manda ESCAMILLA VITAD #### [facility] [address] [place] [address] Dr. Mundo Puri EO # 0.0 103/ul Normal 0.0-0.7 [facility] Comment on above: Performed By: #### Manda ESCAMILLA VITAD #### [facility] [address] [place] [address] Dr. Mundo Puri Eosinophils/100 WBC (Bld) 0.1 % Critically low 0.9-7. 0 [facility] Comment on above: Performed By: #### Manda ESCAMILLA VITAD #### [facility] [address] [place] [address] Dr. Mundo Puri Erythrocyte distribution width (RBC) [Ratio] 13.1 % Normal 11.0-15.0 [facility] Comment on above: Performed By: #### Manda ESCAMILLA VITAD #### [facility] [address] [place] [address] Dr. Mundo Puri Hematocrit (Bld) [Volume fraction] 39.5 % Normal 36.0-48.0 [facility] Comment on above: Performed By: #### I FRANCINE, VITAD #### [facility] [address] [place] [address] Dr. Mundo Puri Hemoglobin (Bld) [Mass/Vol] 13.3 g/dL Normal 12.0-16.0 [facility] Comment on above: Performed By: #### I FRANCINE, VITAD #### [facility] [address] [place] [address] Dr. Mundo Puri IG # 0.03 10e3/ul Normal 0.00-0.03 [facility] Comment on above: Performed By: #### I FRANCINE, VITAD #### [facility] [address] [place] [address] Dr. Mundo Puri IG % 0.3 % Normal 0.0-0.5 [facility] Comment on above: Performed By: #### I FRANCINE, VITAD #### [facility] [address] [place] [address] Dr. Mundo Puri LYMPH # 1.9 103/ul Normal 1.2-3.8 [facility] Comment on above: Performed By: #### I FRANCINE, VITAD #### [facility] [address] [place] [address] Dr. Mundo Puri Lymphocytes/100 WBC (Bld) 20.4 % Critically low 20.5-6 0.0 [facility] Comment on above: Performed By: #### I FRANCINE, VITAD #### [facility] [address] [place] [address] Dr. Mundo Puri MANUAL DIFF REQ NO Normal [facility] Comment on above: Performed By: #### I FRANCINE, VITAD #### [facility] [address] [place] [address] Dr. Mundo Puri MCH (RBC) [Entitic mass] 29.8 pg Normal 26.7-34.0 [facility] Comment on above: Performed By: #### I FRANCINE, VITAD #### [facility] [address] [place] [address] Dr. Mundo Puri MCHC (RBC) [Mass/Vol] 33.7 g/dL Normal 29.9-35.2 [facility] Comment on above: Performed By: #### I FRANCINE, VITAD #### [facility] [address] [place] [address] Dr. Mundo Puri MCV (RBC) [Entitic vol] 88.4 fL Normal 81.0-99.0 [facility] Comment on above: Performed By: #### I FRANCINE, VITAD #### [facility] [address] [place] [address] Dr. Mundo Puri MONO # 0.5 103/ul Normal 0.3-0.8 [facility] Comment on above: Performed By: #### I FRANCINE, VITAD #### [facility] [address] [place] [address] Dr. Mundo Puri Monocytes/100 WBC (Bld) 5.5 % Normal 1.7-12.0 [facility] Comment on above: Performed By: #### I FRANCINE, VITAD #### [facility] [address] [place] [address] Dr. Mundo Puri NEUT # 6.7 103/ul Critically high 1.4-6.5 [facility] Comment on above: Performed By: #### I FRANCINE, VITAD #### [facility] [address] [place] [address] Dr. Mundo Puri Neutrophils/100 WBC (Bld) 73.5 % Normal 43.0-75.0 [facility] Comment on above: Performed By: #### Manda ESCAMILLA, VITAD #### [facility] [address] [place] [address] Dr. Mundo Puri Platelet mean volume (Bld) [Entitic vol] 12.3 fL Normal 9.5-13.5 [facility] Comment on above: Performed By: #### I FRANCINE, VITAD #### [facility] [address] [place] [address] Dr. Mundo Puri PLT 197 103/ul Normal 150-450 [facility] Comment on above: Performed By: #### I FRANCINE, VITAD #### [facility] [address] [place] [address] Dr. Mundo Puri RBC 4.47 106/ul Normal 4.20-5.40 [facility] Comment on above: Performed By: #### I FRANCINE VITAD #### [facility] [address] [place] [address] Dr. Mundo Puri WBC 9.1 103/ul Normal 4.0-11.0 [facility] Comment on above: Performed By: #### I FRANCINE VITAD #### [facility] [address] [place] [address] Dr. Mundo Puri CULTURE URINEon 08-11-2022 CULTURE URINE Culture Observations: LIGHT GROWTH OF MIXED GENITAL GIA. NO POTENTIAL PATHOGENS SEEN. Normal [facility] Comment on above: Performed By: #### L BCLH #### [facility] [address] [place] [address] Dr. Mundo Puri GLYCOHEMOGLOBIN A1Con 2022 ADA RECOMMENDATION SEE BELOW Normal [facility] Comment on above: Result Comment: ADA RECOMMENDED LIMIT 4.0 - 6.0 ADA THERAPEUTIC TARGET < 7.0 ACTION SUGGESTED > 7.0 Performed By: #### I NSULIN #### [facility] [address] [place] [address] Dr. Mundo Puri Glucose [Mass/Vol] 103 mg/dL Normal [facility] Comment on above: Performed By: #### I NSULIN #### [facility] [address] [place] [address] Dr. Mundo Puri HbA1c (Bld) [Mass fraction] 5.2 % Normal 4.5-6.2 [facility] Comment on above: Performed By: #### I NSULIN #### [facility] [address] [place] [address] Dr. Mundo Puri TSHon 08-11-2022 TSH 1.222 uIU/mL Normal 0.358-3.740 [facility] Comment on above: Performed By: #### T SH #### [facility] [address] [place] [address] Dr. Mundo Puri TYPE AND SCREENon 08-11-2022 TYPE AND SCREEN Negative Normal [facility] Comment on above: Performed By: #### L BCLH #### [facility] [address] [place] [address] Dr. Mundo Puri US PREG TVon 08-11-2022 [...] ASHLEY CATES Date: 2022-08-11 17:38 Normal [facility] UA (CLEAN/CATCH) SCHOOL AIDE/MICRO I F IND.on 07-28-2022 Bilirubin Ql (U) Negative Normal NEGATIVE [facility] Comment on above: Performed By: #### I NSULIN #### [facility] [address] [place] [address] Dr. Mundo Puri Clarity (U) CLEAR Normal CLEAR [facility] Comment on above: Performed By: #### I NSULIN #### [facility] [address] [place] [address] Dr. Mundo Puri Color (U) LT. YELLOW Normal YELLOW [facility] Comment on above: Performed By: #### I NSULIN #### [facility] [address] [place] [address] Dr. Mundo Puri Glucose Ql (U) Negative Normal NEGATIVE [facility] Comment on above: Performed By: #### I NSULIN #### [facility] [address] [place] [address] Dr. Mundo Puri Hemoglobin Ql (U) Negative Normal NEGATIVE [facility] Comment on above: Performed By: #### I NSULIN #### [facility] [address] [place] [address] Dr. Mundo Puri Ketones Ql (U) Negative Normal NEGATIVE [facility] Comment on above: Performed By: #### I NSULIN #### [facility] [address] [place] [address] Dr. Mundo Puri LEUKOCYTES Negative Normal NEGATIVE [facility] Comment on above: Performed By: #### I NSULIN #### [facility] [address] [address] [address] Mundo Puri Nitrite Ql (U) Negative Normal NEGATIVE [facility] Comment on above: Performed By: #### I NSULIN #### [facility] [address] [place] [address] Dr. Mundo Puri pH (U) 5.0 [pH] Normal 5-9 [facility] Comment on above: Performed By: #### I NSULIN #### [facility] [address] [place] [address] Dr. Mundo Puri SPEC GRAVITY 1.005 Normal 1.005-<=1.02 5 [facility] Comment on above: Performed By: #### I NSULIN #### [facility] [address] [place] [address] Dr. Mundo Puri UA PROTEIN Negative Normal NEGATIVE/ TRACE [facility] Comment on above: Performed By: #### I NSULIN #### [facility] [address] [place] [address] Dr. Mundo Puri UR MICRO IND NOT INDICATED Normal [facility] Comment on above: Performed By: #### I NSULIN #### [facility] [address] [place] [address] Dr. Mundo Puri Urobilinogen Qn (U) 0.2 {Goldy'U}/dL Normal 0.2 - 1. 0 [facility] Comment on above: Performed By: #### I NSULIN #### [facility] [address] [place] [address] Dr. Mundo uPri CBC AUTO DIFFon 07-14-2022 BASO # 0.0 103/ul Normal 0.0-0.1 [facility] Comment on above: Performed By: #### L BCLH #### [facility] [address] [place] [address] Dr. Mundo Puri Basophils/100 WBC (Bld) 0.2 % Normal 0.2-2.0 [facility] Comment on above: Performed By: #### L BCLH #### [facility] [address] [place] [address] Dr. Mundo Puri EO # 0.0 103/ul Normal 0.0-0.7 [facility] Comment on above: Performed By: #### L BCLH #### [facility] [address] [place] [address] Dr. Mundo Puri Eosinophils/100 WBC (Bld) 0.0 % Critically low 0.9-7. 0 [facility] Comment on above: Performed By: #### L BCLH #### [facility] [address] [place] [address] Dr. Mundo Puri Erythrocyte distribution width (RBC) [Ratio] 13.0 % Normal 11.0-15.0 [facility] Comment on above: Performed By: #### L BCLH #### [facility] [address] [place] [address] Dr. Mundo Puri Hematocrit (Bld) [Volume fraction] 38.9 % Normal 36.0-48.0 [facility] Comment on above: Performed By: #### L BCLH #### [facility] [address] [place] [address] Dr. Mundo Puri Hemoglobin (Bld) [Mass/Vol] 13.5 g/dL Normal 12.0-16.0 [facility] [facility] Comment on above: Performed By: #### L BCLH #### [facility] [address] [place] [address] Dr. Mundo Puri IG # 0.03 10e3/ul Normal 0.00-0.03 [facility] Comment on above: Performed By: #### L BCLH #### [facility] [address] [place] [address] Dr. Mundo Puri IG % 0.3 % Normal 0.0-0.5 [facility] Comment on above: Performed By: #### L BCLH #### [facility] [address] [place] [address] Dr. Mundo Puri LYMPH # 2.3 103/ul Normal 1.2-3.8 [facility] Comment on above: Performed By: #### L BCLH #### [facility] [address] [place] [address] Dr. Mundo Puri Lymphocytes/100 WBC (Bld) 26.7 % Normal 20.5-60.0 [facility] Comment on above: Performed By: #### L BCLH #### [facility] [address] [place] [address] Dr. Mundo Puri MANUAL DIFF REQ NO Normal [facility] Comment on above: Performed By: #### L BCLH #### [facility] [address] [place] [address] Dr. Mundo Puri MCH (RBC) [Entitic mass] 29.9 pg Normal 26.7-34.0 [facility] Comment on above: Performed By: #### L BCLH #### [facility] [address] [place] [address] Dr. Mundo Puri MCHC (RBC) [Mass/Vol] 34.7 g/dL Normal 29.9-35.2 [facility] Comment on above: Performed By: #### L BCLH #### [facility] [address] [place] [address] Dr. Mundo Puri MCV (RBC) [Entitic vol] 86.1 fL Normal 81.0-99.0 [facility] Comment on above: Performed By: #### L BCLH #### [facility] [address] [place] [address] Dr. Mundo Puri MONO # 0.7 103/ul Normal 0.3-0.8 [facility] Comment on above: Performed By: #### L BCLH #### [facility] [address] [place] [address] Dr. Mundo Puri Monocytes/100 WBC (Bld) 8.0 % Normal 1.7-12.0 [facility] Comment on above: Performed By: #### L BCLH #### [facility] [address] [place] [address] Dr. Mundo Puri NEUT # 5.7 103/ul Normal 1.4-6.5 [facility] Comment on above: Performed By: #### L BCL #### [facility] [address] [place] [address] Dr. Mundo Puri Neutrophils/100 WBC (Bld) 64.8 % Normal 43.0-75.0 [facility] Comment on above: Performed By: #### L BCLH #### [facility] [address] [place] [address] Dr. Mundo Puri Platelet mean volume (Bld) [Entitic vol] 12.0 fL Normal 9.5-13.5 [facility] Comment on above: Performed By: #### L BCL #### [facility] [address] [place] [address] Dr. Mundo Puri PLT 199 103/ul Normal 150-450 [facility] Comment on above: Performed By: #### L BCLH #### [facility] [address] [place] [address] Dr. Mundo Puri RBC 4.52 106/ul Normal 4.20-5.40 [facility] Comment on above: Performed By: #### L BCL #### [facility] [address] [place] [address] Dr. Mundo Puri WBC 8.8 103/ul Normal 4.0-11.0 [facility] Comment on above: Performed By: #### L BCLH #### [facility] [address] [place] [address] Dr. Mundo Puri ER URINE PROFILEon 3 Bilirubin Ql (U) Negative Normal NEGATIVE [facility] Comment on above: Performed By: #### I FRANCINE VITAD #### [facility] [address] [place] [address] Dr. Mundo Puri Clarity (U) CLEAR Normal CLEAR [facility] Comment on above: Performed By: #### I FRANCINE VITAD #### [facility] [address] [place] [address] Dr. Mundo Puri Color (U) LT. YELLOW Normal YELLOW [facility] Comment on above: Performed By: #### I FRANCINE, VITAD #### [facility] [address] [place] [address] Dr. Mundo BOWIE A micrscopic examination will be performed if indicated. Normal [facility] Comment on above: Performed By: #### I FRANCINE, VITAD #### [facility] [address] [place] [address] Dr. Mundo Puri Glucose Ql (U) Negative Normal NEGATIVE [facility] Comment on above: Performed By: #### I FRANCINE, VITAD #### [facility] [address] [place] [address] Dr. Mundo Puri Hemoglobin Ql (U) Negative Normal NEGATIVE [facility] Comment on above: Performed By: #### I FRANCINE, VITAD #### [facility] [address] [place] [address] Dr. Mundo Puri Ketones Ql (U) >=80 Abnormal NEGATIVE [facility] Comment on above: Performed By: #### I FRANCINE VITAD #### [facility] [address] [place] [address] Dr. Mundo Puri LEUKOCYTES Negative Normal NEGATIVE [facility] Comment on above: Performed By: #### I FRANCINE VITAD #### [facility] [address] [place] [address] Dr. Mundo Puri Nitrite Ql (U) Negative Normal NEGATIVE [facility] Comment on above: Performed By: #### I FRANCINE VITAD #### [facility] [address] [place] [address] Dr. Mundo Puri pH (U) 6.0 [pH] Normal 5-9 [facility] Comment on above: Performed By: #### I FRANCINE VITAD #### [facility] [address] [place] [address] Dr. Mundo Puri SPEC GRAVITY 1.020 Normal 1.005-<=1.02 5 [facility] Comment on above: Performed By: #### I FRANCINE, VITAD #### [facility] [address] [place] [address] Dr. Mundo Puri UA PROTEIN Negative Normal NEGATIVE/ TRACE [facility] Comment on above: Performed By: #### I FRANCINE, VITAD #### [facility] [address] [place] [address] Dr. Mundo Puri UR MICRO IND NOT INDICATED Normal [facility] Comment on above: Performed By: #### I FRANCINE, VITAD #### [facility] [address] [place] [address] Dr. Mundo Puri Urobilinogen Qn (U) 0.2 {Goldy'U}/dL Normal 0.2 - 1. 0 [facility] Comment on above: Performed By: #### I FRANCINE, VITAD #### [facility] [address] [place] [address] Dr. Mundo Puri PROF 14(COMP METB)on 023 Albumin [Mass/Vol] 4.1 g/dL Normal 3.4-5.0 [facility] Comment on above: Performed By: #### C MP #### [facility] [address] [place] [address] Dr. Mundo Puri Albumin/Globulin [Mass ratio] 1.4 {ratio} Normal [facility] Comment on above: Performed By: #### C MP #### [facility] [address] [place] [address] Dr. Mundo Puri ALP [Catalytic activity/Vol] 59 U/L Normal 46-116 [facility] Comment on above: Performed By: #### C MP #### [facility] [address] [place] [address] Dr. Mundo Puri ALT [Catalytic activity/Vol] 17 U/L Normal 14-59 [facility] Comment on above: Performed By: #### C MP #### [facility] [address] [place] [address] Dr. Mundo Puri Anion gap [Moles/Vol] 15.2 mmol/L Normal [facility] Comment on above: Performed By: #### C MP #### [facility] [address] [place] [address] Dr. Mundo Puri AST [Catalytic activity/Vol] 6 U/L Critically low 15-37 [facility] Comment on above: Performed By: #### C MP #### [facility] [address] [address] [address] Mundo Puri Bilirubin [Mass/Vol] 0.5 mg/dL Normal 0.2-1.0 [facility] Comment on above: Performed By: #### C MP #### [facility] [address] [address] [address] Mundo Puri Calcium [Mass/Vol] 8.9 mg/dL Normal 8.5-10.1 [facility] Comment on above: Performed By: #### C MP #### [facility] [address] [address] [address] Mundo Puri Chloride [Moles/Vol] 103 mmol/L Normal 98-107 [facility] Comment on above: Performed By: #### C MP #### [facility] [address] [place] [address] Dr. Mundo Puri CO2 [Moles/Vol] 22.2 mmol/L Normal 21.0-32.[address] [facility] Comment on above: Performed By: #### C MP #### [facility] [address] [place] [address] Dr. Mundo Puri Creatinine [Mass/Vol] 0.48 mg/dL Critically low 0.55-1.02 [facility] Comment on above: Performed By: #### C MP #### [facility] [address] [place] [address] Dr. Mundo Puri EGFR-AF PALAUAN >60 Normal >=[address] [facility] Comment on above: Performed By: #### C MP #### [facility] [address] [place] [address] Dr. Mundo Puri EGFR-NON AF PALAUAN >60 Normal >=60 [facility] Comment on above: Performed By: #### C MP #### [facility] [address] [place] [address] Dr. Mundo Puri Globulin (S) [Mass/Vol] 3.0 g/dL Normal [facility] Comment on above: Performed By: #### C MP #### [facility] [address] [place] [address] Dr. Mundo Puri Glucose [Mass/Vol] 96 mg/dL Normal 74-106 [facility] Comment on above: Performed By: #### C MP #### [facility] [address] [address] [address] Mundo Puri Potassium [Moles/Vol] 3.4 mmol/L Critically low 3.5-5.1 [facility] Comment on above: Performed By: #### C MP #### [facility] [address] [address] [address] Mundo Puri Protein [Mass/Vol] 7.1 g/dL Normal 6.4-8.2 [facility] Comment on above: Performed By: #### C MP #### [facility] [address] [address] [address] Mundo Puri Sodium [Moles/Vol] 137 mmol/L Normal 136-145 [facility] Comment on above: Performed By: #### C MP #### [facility] [address] [address] [address] Mundo Puri Urea nitrogen [Mass/Vol] 5.0 mg/dL Critically low 7.0-18. 0 [facility] Comment on above: Performed By: #### C MP #### [facility] [address] [address] [address] Mundo Puri Urea nitrogen/Creatinine [Mass ratio] 10.4 mg/mg Normal [facility] Comment on above: Performed By: #### C MP #### [facility] [address] [address] [address] Mundo Puri PREG QUANT HCGon 07-13-2022 HCG QUANT 86979 mIU/mL Normal [facility] Comment on above: Performed By: #### L BCL #### [facility] [address] [address] [address] Mundo Puri HCG RANGE SEE BELOW Normal [facility] Comment on above: Result Comment: 5-50 0.2-1 WEEK 50-500 1-2 WEEKS 100-5,000 2-3 WEEKS 500-10,000 3-4 WEEKS 1,000-50,000 4-5 WEEKS 10,000-100,000 5-6 WEEKS 15,000-200,000 6-8 WEEKS 10,000-100,000 2-3 MONTHS Performed By: #### L LAZARUS #### [facility] [address] [place] [address] Dr. Mundo Puri DHEA SERUMon 05-18-2022 Dehydroepiandrosterone (DHEA) 275 ng/dL Normal 31-701 [facility] Comment on above: Result Comment: Age 1 [...] 31 - 701 Performed By: #### L LAZARUS #### [facility] [address] [place] [address] Dr. Mundo Puri DHEA-SULFATEon 05-14-2022 DHEA-Sulfate 556.0 ug/dL Critically high 110.0-431.7 [facility] Comment on above: Performed By: #### L LAZARUS #### [facility] [address] [place] [address] Dr. Mundo Puri FSHon 05-14-2022 FSH 3.1 mIU/mL Normal [facility] Comment on above: Result Comment: Adul t Female: Follicular phase 3.5 - 12.5 Ovulation phase 4.7 - 21.5 Luteal phase 1.7 - 7.7 Postmenopausal 25.8 - 134.8 Performed By: #### I NSULIN #### [facility] [address] [place] [address] Dr. Mundo Puri LUTEINIZING HORMONE (LH)on 0 05-14-2022 LH 2.2 mIU/mL Normal [facility] Comment on above: Result Comment: Adul t Female: Follicular phase 2.4 - 12.6 Ovulation phase 14.0 - 95.6 Luteal phase 1.0 - 11.4 Postmenopausal 7.7 - 58.5 Performed By: #### L LAZARUS #### [facility] [address] [place] [address] Dr. Mundo Puri CBC AUTO DIFFon 05-13-2022 BASO # 0.0 103/ul Normal 0.0-0.1 [facility] Comment on above: Performed By: #### C BC #### [facility] [address] [place] [address] Dr. Mundo Puri Basophils/100 WBC (Bld) 0.2 % Normal 0.2-2.0 [facility] Comment on above: Performed By: #### C BC #### [facility] [address] [place] [address] Dr. Mundo Puri EO # 0.0 103/ul Normal 0.0-0.7 [facility] Comment on above: Performed By: #### C BC #### [facility] [address] [place] [address] Dr. Mundo Puri Eosinophils/100 WBC (Bld) 0.0 % Critically low 0.9-7. 0 [facility] Comment on above: Performed By: #### C BC #### [facility] [address] [place] [address] Dr. Mundo Puri Erythrocyte distribution width (RBC) [Ratio] 13.1 % Normal 11.0-15.0 [facility] Comment on above: Performed By: #### C BC #### [facility] [address] [place] [address] Dr. Mundo Puri Hematocrit (Bld) [Volume fraction] 48.6 % Critically high 36.0-48.0 [facility] Comment on above: Performed By: #### C BC #### [facility] [address] [place] [address] Dr. Mundo Puri Hemoglobin (Bld) [Mass/Vol] 15.4 g/dL Normal 12.0-16.0 [facility] Comment on above: Performed By: #### C BC #### [facility] [address] [place] [address] Dr. Mundo Puri IG # 0.01 10e3/ul Normal 0.00-0.03 [facility] Comment on above: Performed By: #### C BC #### [facility] [address] [place] [address] Dr. Mundo Puri IG % 0.2 % Normal 0.0-0.5 [facility] Comment on above: Performed By: #### C BC #### [facility] [address] [place] [address] Dr. Mundo Puri LYMPH # 1.5 103/ul Normal 1.2-3.8 [facility] Comment on above: Performed By: #### C BC #### [facility] [address] [place] [address] Dr. Mundo Puri Lymphocytes/100 WBC (Bld) 26.8 % Normal 20.5-60.0 [facility] Comment on above: Performed By: #### C BC #### [facility] [address] [place] [address] Dr. Mundo Puri MANUAL DIFF REQ NO Normal [facility] Comment on above: Performed By: #### C BC #### [facility] [address] [place] [address] Dr. Mundo Puri MCH (RBC) [Entitic mass] 28.8 pg Normal 26.7-34.0 [facility] Comment on above: Performed By: #### C BC #### [facility] [address] [place] [address] Dr. Mundo Puri MCHC (RBC) [Mass/Vol] 31.7 g/dL Normal 29.9-35.2 [facility] Comment on above: Performed By: #### C BC #### [facility] [address] [place] [address] Dr. Mundo Puri MCV (RBC) [Entitic vol] 91.0 fL Normal 81.0-99.0 [facility] Comment on above: Performed By: #### C BC #### [facility] [address] [place] [address] Dr. Mundo Puri MONO # 0.5 103/ul Normal 0.3-0.8 [facility] Comment on above: Performed By: #### C BC #### [facility] [address] [place] [address] Dr. Mundo Puri Monocytes/100 WBC (Bld) 8.9 % Normal 1.7-12.0 [facility] Comment on above: Performed By: #### C BC #### [facility] [address] [place] [address] Dr. Mundo Puri NEUT # 3.5 103/ul Normal 1.4-6.5 [facility] Comment on above: Performed By: #### C BC #### [facility] [address] [place] [address] Dr. Mundo Puri Neutrophils/100 WBC (Bld) 63.9 % Normal 43.0-75.0 [facility] Comment on above: Performed By: #### C BC #### [facility] [address] [place] [address] Dr. Mundo Puri Platelet mean volume (Bld) [Entitic vol] 13.2 fL Normal 9.5-13.5 [facility] Comment on above: Performed By: #### C BC #### [facility] [address] [place] [address] Dr. Mundo Puri PLT 217 103/ul Normal 150-450 [facility] Comment on above: Performed By: #### C BC #### [facility] [address] [place] [address] Dr. Mundo Puri RBC 5.34 106/ul Normal 4.20-5.40 [facility] Comment on above: Performed By: #### C BC #### [facility] [address] [place] [address] Dr. Mundo Puri WBC 5.4 103/ul Normal 4.0-11.0 [facility] Comment on above: Performed By: #### C BC #### [facility] [address] [place] [address] Dr. Mundo Puri FREE T4on 05-13-2022 Free T4 [Mass/Vol] 0.83 ng/dL Normal 0.76-1.46 [facility] Comment on above: Performed By: #### I NSULIN #### [facility] [address] [place] [address] Dr. Mundo Puri GLYCOHEMOGLOBIN A1Con 2022 ADA RECOMMENDATION SEE BELOW Normal [facility] Comment on above: Result Comment: ADA RECOMMENDED LIMIT 4.0 - 6.0 ADA THERAPEUTIC TARGET < 7.0 ACTION SUGGESTED > 7.0 Performed By: #### I NSULIN #### [facility] [address] [place] [address] Dr. Mundo Puri Glucose [Mass/Vol] 105 mg/dL Normal [facility] Comment on above: Performed By: #### I NSULIN #### [facility] [address] [place] [address] Dr. Mundo Puri HbA1c (Bld) [Mass fraction] 5.3 % Normal 4.5-6.2 [facility] Comment on above: Performed By: #### I NSULIN #### [facility] [address] [place] [address] Dr. Mundo Puri PREG QUANT HCGon 05-13-2022 HCG QUANT <1 Normal [facility] Comment on above: Performed By: #### T CLAUDETTE, PREGQNT #### [facility] [address] [place] [address] Dr. Mundo Puri HCG RANGE SEE BELOW Normal [facility] Comment on above: Result Comment: 5-50 0.2-1 WEEK 50-500 1-2 WEEKS 100-5,000 2-3 WEEKS 500-10,000 3-4 WEEKS 1,000-50,000 4-5 WEEKS 10,000-100,000 5-6 WEEKS 15,000-200,000 6-8 WEEKS 10,000-100,000 2-3 MONTHS Performed By: #### T SH, PREGQNT #### [facility] [address] [place] [address] Dr. Mundo Puri TSHon 05-13-2022 TSH 1.385 uIU/mL Normal 0.358-3.740 [facility] Comment on above: Performed By: #### T CLAUDETTE, PREGQNT #### [facility] [address] [place] [address] Dr. Mundo Puri US PELVIS AND TRANSVAGon [...] ASHLEY CATES Date: 2022-05-13 12:25 Normal [facility] INSULINon 08-21-2021 Insulin 6.9 uIU/mL Normal 2.6-24.9 [facility] Comment on above: Performed By: #### I NSULIN #### [facility] [address] [place] [address] Dr. Mundo Puri CBC AUTO DIFFon 08-20-2021 BASO # 0.0 103/ul Normal 0.0-0.1 [facility] Comment on above: Performed By: #### L BCLH #### [facility] [address] [place] [address] Dr. Mundo Puri Basophils/100 WBC (Bld) 0.3 % Normal 0.2-2.0 [facility] Comment on above: Performed By: #### L BCLH #### [facility] [address] [place] [address] Dr. Mundo Puri EO # 0.0 103/ul Normal 0.0-0.7 [facility] Comment on above: Performed By: #### L BCLH #### [facility] [address] [place] [address] Dr. Mundo Puri Eosinophils/100 WBC (Bld) 0.0 % Critically low 0.9-7. 0 [facility] Comment on above: Performed By: #### L BCLH #### [facility] [address] [place] [address] Dr. Mnudo Puri Erythrocyte distribution width (RBC) [Ratio] 12.7 % Normal 11.0-15.0 [facility] Comment on above: Performed By: #### L BCL #### [facility] [address] [place] [address] Dr. Mundo Puri Hematocrit (Bld) [Volume fraction] 43.3 % Normal 36.0-48.0 [facility] Comment on above: Performed By: #### L BCLH #### [facility] [address] [place] [address] Dr. Mundo Puri Hemoglobin (Bld) [Mass/Vol] 14.7 g/dL Normal 12.0-16.0 [facility] Comment on above: Performed By: #### L BCLH #### [facility] [address] [place] [address] Dr. Mundo Puri IG # 0.02 10e3/ul Normal 0.00-0.03 [facility] Comment on above: Performed By: #### L JALIL #### [facility] [address] [place] [address] Dr. Mundo Puri IG % 0.3 % Normal 0.0-0.5 [facility] Comment on above: Performed By: #### L BCL #### [facility] [address] [place] [address] Dr. Mundo Puri LYMPH # 1.8 103/ul Normal 1.2-3.8 [facility] Comment on above: Performed By: #### L BCLH #### [facility] [address] [place] [address] Dr. Mundo Puri Lymphocytes/100 WBC (Bld) 24.4 % Normal 20.5-60.0 [facility] Comment on above: Performed By: #### L BCLH #### [facility] [address] [place] [address] Dr. Mundo Puri MANUAL DIFF REQ NO Normal [facility] Comment on above: Performed By: #### L JALILH #### [facility] [address] [place] [address] Dr. Mundo Puri MCH (RBC) [Entitic mass] 29.9 pg Normal 26.7-34.0 [facility] Comment on above: Performed By: #### L BCL #### [facility] [address] [place] [address] Dr. Mundo Puri MCHC (RBC) [Mass/Vol] 33.9 g/dL Normal 29.9-35.2 [facility] Comment on above: Performed By: #### L BCLH #### [facility] [address] [place] [address] Dr. Mundo Puri MCV (RBC) [Entitic vol] 88.0 fL Normal 81.0-99.0 [facility] Comment on above: Performed By: #### L BCLH #### [facility] [address] [place] [address] Dr. Mundo Puri MONO # 0.6 103/ul Normal 0.3-0.8 [facility] Comment on above: Performed By: #### L JALIL #### [facility] [address] [place] [address] Dr. Mundo Puri Monocytes/100 WBC (Bld) 8.2 % Normal 1.7-12.0 [facility] Comment on above: Performed By: #### L BCL #### [facility] [address] [place] [address] Dr. Mundo Puri NEUT # 4.8 103/ul Normal 1.4-6.5 [facility] Comment on above: Performed By: #### L BCL #### [facility] [address] [place] [address] Dr. Mundo Puri Neutrophils/100 WBC (Bld) 66.8 % Normal 43.0-75.0 [facility] Comment on above: Performed By: #### L BCLH #### [facility] [address] [place] [address] Dr. Mundo Puri Platelet mean volume (Bld) [Entitic vol] 12.1 fL Normal 9.5-13.5 [facility] Comment on above: Performed By: #### L BCLH #### [facility] [address] [place], [place] [id number] Dr. Mundo Puri PLT 224 103/ul Normal 150-450 [facility] Comment on above: Performed By: #### L LAZARUS #### [facility] [address] [place] [address] Dr. Mundo Puri RBC 4.92 106/ul Normal 4.20-5.40 [facility] Comment on above: Performed By: #### L LAZARUS #### [facility] [address] [address] [address] Mundo Puri WBC 7.2 103/ul Normal 4.0-11.0 [facility] Comment on above: Performed By: #### L LAZARUS #### [facility] [address] [place] [address] Dr. Mundo Puri FREE THYROXINE INDEX T7on FTI 2.66 Normal 1.30-4.50 [facility] Comment on above: Performed By: #### I NSULIN #### [facility] [address] [place] [address] Dr. Mundo Puri T3U 35.0 % Normal 30.0-39.0 [facility] Comment on above: Performed By: #### I JGULIN #### [facility] [address] [place] [address] Dr. Mundo Puri T4 [Mass/Vol] 7.60 ug/dL Normal 4.80-13.90 [facility] Comment on above: Performed By: #### I NSULIN #### [facility] [address] [place] [address] Dr. Mundo Puri GLYCOHEMOGLOBIN A1Con 2021 ADA RECOMMENDATION SEE BELOW Normal [facility] Comment on above: Result Comment: ADA RECOMMENDED LIMIT 4.0 - 6.0 ADA THERAPEUTIC TARGET < 7.0 ACTION SUGGESTED > 7.0 Performed By: #### I NSULIN #### [facility] [address] [place] [address] Dr. Mundo Puri Glucose [Mass/Vol] 103 mg/dL Normal [facility] Comment on above: Performed By: #### I NSULIN #### [facility] [address] [address] [address] Mundo Puri HbA1c (Bld) [Mass fraction] 5.2 % Normal 4.5-6.2 [facility] Comment on above: Performed By: #### I NSULIN #### [facility] [address] [address] [address] Mundo Puri IRONon 08-20-2021 Iron [Mass/Vol] 122.0 ug/dL Normal 50.0-170.[address] [facility] Comment on above: Performed By: #### I FRANCINE VITAD #### [facility] [address] [address] [address] Mundo Puri LIPID PROFILEon 08-20-2021 CHOL-HDL RATIO NORM SEE BELOW Normal [facility] Comment on above: Result Comment: 3.3 - 4.4 LOW RISK 4.4 - 7.1 AVERAGE RISK 7.1 - 11.0 MODERATE RISK >11.0 HIGH RISK Performed By: #### I NSULIN #### [facility] [address] [place] [address] Dr. Mundo Puri Cholesterol [Mass/Vol] 143 mg/dL Normal <=200 [facility] Comment on above: Performed By: #### I NSULIN #### [facility] [address] [address] [address] Mundo Puri Cholesterol in HDL [Mass/Vol] 64 mg/dL Critically high 40-60 [facility] Comment on above: Performed By: #### I NSULIN #### [facility] [address] [address] [address] Mundo Puri Cholesterol in LDL [Mass/Vol] 73.4 mg/dL Normal [facility] Comment on above: Performed By: #### I NSULIN #### [facility] [address] [place] [address] Dr. Mundo Puri Cholesterol.total/Cholest isra in HDL [Mass ratio] 2.2 {ratio} Normal [facility] Comment on above: Performed By: #### I NSULIN #### [facility] [address] [place] [address] Dr. Mundo Puri HDL NORMAL > or = 60 mg/dl - LOW CARDIOVASCULAR RISK <40 mg/dl - HIGH CARDIOVASCULAR RISK Normal [facility] Comment on above: Performed By: #### I NSULIN #### [facility] [address] [address] [address] Mundo Puri LDL CALC NORMAL SEE BELOW Normal [facility] Comment on above: Result Comment: <100 mg/dl OPTIMAL 100 - 129 mg/dl NEAR OR ABOVE OPTIMAL 130 - 159 mg/dl BORDERLINE HIGH 160 - 189 mg/dl HIGH >190 mg/dl VERY HIGH Performed By: #### I NSULIN #### [facility] [address] [address] [address] Mundo Puri Triglyceride [Mass/Vol] 28 mg/dL Normal <=150 [facility] Comment on above: Performed By: #### I NSULIN #### [facility] [address] [address] [address] Mundo Puri VLDL CALC 5.6 mg/dL Normal [facility] Comment on above: Performed By: #### I NSULIN #### [facility] [address] [address] [address] Mundo Puri PROF 14(COMP METB)on 022 Albumin [Mass/Vol] 4.3 g/dL Normal 3.4-5.0 [facility] Comment on above: Performed By: #### I NSULIN #### [facility] [address] [address] [address] Mundo Puri Albumin/Globulin [Mass ratio] 1.2 {ratio} Normal [facility] Comment on above: Performed By: #### I NSULIN #### [facility] [address] [address] [address] Mundo Puri ALP [Catalytic activity/Vol] 58 U/L Normal 46-116 [facility] Comment on above: Performed By: #### I NSULIN #### [facility] [address] [address] [address] Mundo Puri ALT [Catalytic activity/Vol] 22 U/L Normal 14-59 [facility] Comment on above: Performed By: #### I NSULIN #### [facility] [address] [address] [address] Mundo Puri Anion gap [Moles/Vol] 11.8 mmol/L Normal [facility] Comment on above: Performed By: #### I NSULIN #### [facility] [address] [address] [address] Mundo Puri AST [Catalytic activity/Vol] 16 U/L Normal 15-37 [facility] Comment on above: Performed By: #### I NSULIN #### [facility] [address] [address] [address] Mundo Puri Bilirubin [Mass/Vol] 0.6 mg/dL Normal 0.2-1.0 [facility] Comment on above: Performed By: #### I NSULIN #### [facility] [address] [address] [address] Mundo Puri Calcium [Mass/Vol] 9.2 mg/dL Normal 8.5-10.1 [facility] Comment on above: Performed By: #### I NSULIN #### [facility] [address] [address] [address] Mundo Puri Chloride [Moles/Vol] 102 mmol/L Normal 98-107 [facility] Comment on above: Performed By: #### I NSULIN #### [facility] [address] [address] [address] Mundo Puri CO2 [Moles/Vol] 28.0 mmol/L Normal 21.0-32.[address] [facility] Comment on above: Performed By: #### I NSULIN #### [facility] [address] [address] [address] Mundo Puri Creatinine [Mass/Vol] 0.67 mg/dL Normal 0.55-1.02 [facility] Comment on above: Performed By: #### I NSULIN #### [facility] [address] [address] [address] Mundo Puri EGFR-AF PALAUAN >60 Normal >=[address] [facility] Comment on above: Performed By: #### I NSULIN #### [facility] [address] [place] [address] Dr. Mundo Puri EGFR-NON AF PALAUAN >60 Normal >=60 [facility] Comment on above: Performed By: #### I NSULIN #### [facility] [address] [place] [address] Dr. Mundo Puri Globulin (S) [Mass/Vol] 3.6 g/dL Normal [facility] Comment on above: Performed By: #### I NSULIN #### [facility] [address] [place] [address] Dr. Mundo Puri Glucose [Mass/Vol] 90 mg/dL Normal 74-106 [facility] Comment on above: Performed By: #### I NSULIN #### [facility] [address] [place] [address] Dr. Mundo Puri Potassium [Moles/Vol] 3.8 mmol/L Normal 3.5-5.1 [facility] Comment on above: Performed By: #### I NSULIN #### [facility] [address] [place] [address] Dr. Mundo Puri Protein [Mass/Vol] 7.9 g/dL Normal 6.4-8.2 [facility] Comment on above: Performed By: #### I NSULIN #### [facility] [address] [place] [address] Dr. Mundo Puri Sodium [Moles/Vol] 138 mmol/L Normal 136-145 [facility] Comment on above: Performed By: #### I NSULIN #### [facility] [address] [place] [address] Dr. Mundo Puri Urea nitrogen [Mass/Vol] 13.0 mg/dL Normal 7.0-18.0 [facility] Comment on above: Performed By: #### I NSULIN #### [facility] [address] [place] [address] Dr. Mundo Puri Urea nitrogen/Creatinine [Mass ratio] 19.4 mg/mg Normal [facility] Comment on above: Performed By: #### I NSULIN #### [facility] [address] [place] [address] Dr. Mundo Puri TSHon 08-20-2021 TSH 1.483 uIU/mL Normal 0.358-3.740 [facility] Comment on above: Performed By: #### I NSULIN #### [facility] [address] [place] [address] Dr. Mundo Puri TSH RANGE SEE BELOW Normal [facility] Comment on above: Result Comment: <0.3 4 UIU/ml HYPERTHYROID 0.34-5.60 UIU/ml EUTHYROID >5.60 UIU/ml HYPOTHYROID Performed By: #### I NSULIN #### [facility] [address] [place] [address] Dr. Mundo Puri VITAMIN D 25 OHon 08-20-2021 VIT D 25-OH 24.2 ng/mL Normal [facility] Comment on above: Performed By: #### I FRANCINE, VITAD #### [facility] [address] [place] [address] Dr. Mundo Puri VIT D RANGES SEE BELOW Normal [facility] Comment on above: Result Comment: <20 ng/mL Vit D deficient 20 - <30 ng/mL Vit D insufficient 30 - 100 ng/mL Vit D sufficient >100 ng/mL Potential Toxicity Performed By: #### I FRANCINE, VITAD #### [facility] [address] [place] [address] Dr. Mundo Puri Vital Signs Date Time Vital Sign Value Performing Clinician Michelle alanis 07-23-2024 11:22-0400 Body mass index (BMI) [Ratio] 24.98 kg/m2 [employer] Work Phone: [facility] 07-23-2024 11:22-0400 Body weight 66 kg [employer] Work Phone: [facility] 07-23-2024 11:22-0400 Diastolic blood pressure 80 mm[Hg] [employer] Work Phone: [facility] 07-23-2024 11:22-0400 Systolic blood pressure 110 mm[Hg] MurielNoosh Work Phone: [facility] Healthcare Encounters Encounter Date Encounter Type Care Provider Facility Start: 08-13-2024 End: 08-13-2024 ambulatory Miki SENA Facility:[facility] Start: 07-30-2024 ambulatory Miki SENA Facility:[facility] Start: 07-23-2024 End: 07-23-2024 Bamboo flowsheet Muriel Caridad DO Work Phone: [facility] Start: 07-23-2024 End: 07-27-2024 Bamboo flowsheet Muriel Caridad DO Work Phone: [facility] Start: 07-23-2024 End: 07-27-2024 Clinisync Result Encounter Muriel Caridad DO Work Phone: [facility] Unsolicited Start: 07-23-2024 End: 07-23-2024 ambulatory MURIEL CARIDAD Not Available Start: 07-23-2024 End: 07-23-2024 Patient encounter procedure Muriel Caridad DO Work Phone: [facility] Start: 07-23-2024 End: 07-23-2024 Periodic preventive med est patient 18-39 yrs Muriel Caridad DO Work Phone: [facility] Comment on above: Well woman exam with routine gynecological exam; Cyst of ovary, unspecified laterality Start: 07-12-2024 End: 07-12-2024 ambulatory Priyanka Mendiola MD Work Phone: [facility] Work Phone: Start: 07-12-2024 End: 07-12-2024 Departed Referred Priyanka Mendiola MD Work Phone: [facility] Start: 08-11-2022 End: 08-12-[address] MURIEL MCLEAN . Facility:[facility] Start: 08-11-2022 End: 08-12-[address] MURIEL MCLEAN . Facility:[facility] Start: 07-28-2022 End: 07-29-[address] PRIYANKA MENDIOLA . Facility:[facility] Start: 07-14-2022 End: 04-06-[address] RAMÓN AYALA . Facility:[facility] Start: 07-13-2022 End: 07-14-[address] DOCTOR BENNETT Facility:[facility] Start: 05-13-2022 End: 05-14-[address] MURIEL MCLEAN . Facility:[facility] Start: 08-20-2021 End: 08-21-[address] PRIYANKA MENDIOLA . Facility: Procedures Date Procedure Procedure Detail Performing Clinician Start: 07-23-2024 Urine test visual color cmprsn meths Muriel Mclean DO Work Phone: Start: 07-23-2024 IGP,APTIMA HPV,AGE GDLN Muriel Mclean DO Work Phone: Plan of Treatment Date Care Activity Detail Author Start: 07-23-2024 End: 01-22-2025 US Pelvis US Pelvis w/ TV Imaging Routine Cyst of ovary, unspecified laterality Expected: 07/23/2024, Expires: 01/22/2025 [facility] Healthcare Comment on above: Expected: 07/23/2024 , Expires: 01/22/2025 Start: 07-12-2024 Bacteria identified in Urine by Culture Urine Culture [facility] Start: 07-12-2024 Urine culture [facility] Cytology Cervical or vaginal smear or scraping study Pap Smear Pathology and Cytology Routine Well woman exam with routine gynecological exam Ordered: 07/23/2024 [facility] [employer] Work Phone: Comment on above: Ordered: 07/23/2024 Payers Date Payer Category Payer Self-pay 2024 Medicaid (Managed Care) [facility] MEDICAID 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
[2024-11-29 08:48] LABS: Hematocrit 40.1 % (36.0-48.0); Hemoglobin 13.7 g/dL (12.0-16.0); Immature Granulocytes Abs Auto 0.02 10^3/uL (0.00-0.03); Immature Granulocytes Pct Auto 0.3 % (0.0-0.5); Lymphocytes Absolute Auto 1.5 10^3/uL (1.2-3.8); Mean Corpuscular HGB Conc 34.2 g/dL (29.9-35.2); Mean Corpuscular Hemoglobin 29.9 pg (26.7-34.0); Mean Corpuscular Volume 87.6 fL (81.0-99.0); Platelet Count 213 10^3/uL (150-450); Red Blood Count 4.58 10^6/uL (4.20-5.40); White Blood Count 6.0 10^3/uL (4.0-11.0)
[2024-11-29 09:25] LABS: Alanine Aminotransferase 22 U/L (14-59); Albumin Globulin Ratio 1.1; Albumin Level 4.2 g/dL (3.4-5.0); Alkaline Phosphatase 58 U/L (46-116); Anion Gap 11.2; Aspartate Amino Transferase 14 U/L (15-37); Blood Urea Nitrogen 10.0 mg/dL (7.0-18.0); Calcium 9.3 mg/dL (8.5-10.1); Carbon Dioxide 29.9 mmol/L (21.0-32.0); Chloride 106 mmol/L (98-107); Cholesterol 130 mg/dL (<=200); Estimated GFR (African America >60 (>=60 mL/min/1.73m^2); Estimated GFR (Non-African Ame >60 (>=60 mL/min/1.73m^2); Free T3 2.28 pg/mL (2.18-3.98); Globulin 3.7 g/dL; Glucose 84 mg/dL (74-106); HDL Cholesterol 60 mg/dL (40-60); Potassium 4.1 mmol/L (3.5-5.1); Sodium 143 mmol/L (136-145); Thyroid Stimulating Hormone 1.379 uIU/mL (0.358-3.740); Total Protein 7.9 g/dL (6.4-8.2); Triglycerides 19 mg/dL (<=150); VLDL CHOLESTEROL 3.8 mg/dL
[2024-11-29 09:57] LABS: Iron 70.0 ug/dL (50.0-170.0)
== END 2024-11-29 08:30 | disposition home or self-care (01) ==
LOC: LAB 08:31
PROVIDERS: PCP Family Medicine; Visit Provider Family Medicine
DX: Z00.00 Encounter for general adult medical examination without abnormal findings (principal)
CPT/HCPCS: 36415; 80053; 80061; 82306; 83036; 83540; 84436; 84443; 84481; 85025